=== PATIENT | female | born 1965 | race African-American/Black ===

== ENCOUNTER → 2023-06-22 10:16 | Outpatient (REF) | payer OTHER, SELFPAY | LOC: PAVMRI 10:16 | PROVIDERS: ATTENDING PHYSICIAN Student in an Organized Health Care Education/Training Program; FAMILY PHYSICIAN Family Medicine; REFERRING PHYSICIAN Physical Medicine & Rehabilitation | DX: M48.02 Spinal stenosis, cervical region (principal); M54.2 Cervicalgia; M25.512 Pain in left shoulder | CPT/HCPCS: 72141 ==

== ENCOUNTER 2023-10-10 11:19 | Inpatient (IN) | payer OTHER, SELFPAY ==
[2023-10-06] VITALS (11 sets, daily range): BP systolic 102–125; BP diastolic 64–88; PULSE 94–104; BMI 32.7
[2023-10-06 21:08] LABS: % Basophils 0.9 % (0-2); % Eosinophils 0.4 % (0-6); % Immature Granulocytes 0.2 % (0-0.5); % Lymphocytes 27.6 % (20.5-51.1); % Monocytes 11.1 % (1.7-9.3); % Neutrophils 59.8 % (42.2-75.2); Absolute Basophils 0.1 10^3/uL (0-0.2); Absolute Lymphocytes 2.3 10^3/uL (1.2-3.4); Absolute Monocytes 0.9 10^3/uL (0.1-0.6); Absolute Neutrophils 4.9 10^3/uL (1.4-6.5); Hematocrit 27.6 % (37.0-47.0); Hemoglobin 8.9 g/dL (12.0-16.0); Mean Corp Hgb Conc. 32.2 g/dL (33.0-37.0); Mean Corpuscular Hgb 23.1 pg (27.0-31.0); Mean Corpuscular Volume 71.7 fL (81.0-99.0); Mean Platelet Volume 9.9 fL (7.4-10.4); Nucleated Red Blood Cells % 0 %; Platelet Count 206 10^3/uL (130-400); Red Blood Cell Count 3.85 10^6/uL (4.20-5.40); Red Cell Dist. Width 16.8 % (11.5-14.5); White Blood Cell Count 8.2 10^3/uL (4.8-10.8)
--- NOTE | 2023-10-06 21:14 | ED.GENMED ---
History of Present Illness
General
Chief Complaint: Abnormal Lab Value
Source: patient and family
Exam Limitations: none
Time Seen by Provider: 10/06/23 19:30
Nursing documentation reviewed up to this point in time: agreed with
Travel History
Have you had any contact with someone who has COVID-19?: No
Do you have any symptoms of coronavirus? Fever > 100 degrees, chills, cough, shortness of breath, sore throat, loss of taste or smell, muscle aches, or headache?: No
History of Present Illness
History of Present Illness:
Patient discharged from [facility] 1 week ago, where she was evaluated for lower extremity swelling with generalized weakness, presents to ED from home secondary to worsening weakness, confusion, and decreased appetite. Patient who normally
utilizes walker at baseline, has not been able to bear weight without significant assistance since she has been home. Patient was evaluated by her primary care physician this afternoon and was referred to ED for further evaluation and treatment.
Patient reports feeling weak and tired, and wanting to sleep. Otherwise, denies headache. Denies chest pain. Denies coughing. Denies shortness of breath. Denies abdominal pain. Denies nausea, vomiting, or diarrhea. Patient does also report
continued swelling of her lower legs. Per family, when she was admitted 1 week ago, patient was found to be hypotensive and hypokalemic, secondary to use of diuretic. Patient was discharged home without identification of etiology behind her
symptoms. Patient was not given any diuretic at time of discharge. Patient has fallen multiple times due to weakness since she has been home. Denies any injuries from the fall.
Review of Systems
Review of Systems
Allergies reviewed?: Yes
All Other Systems: ROS reviewed and negative except as documented in HPI and ROS
Constitutional: Reports no symptoms; Denies fever
EENT: Reports no symptoms
Respiratory: Reports no symptoms
Cardiac: Reports no symptoms
ABD/GI: Reports no symptoms
: Reports no symptoms
Musculoskeletal: Reports edema
Skin: Reports no symptoms
Neurological: Reports weakness
Phy Exam
Physical Exam
Physical Exam:
Physical Exam
General: no apparent distress, not acutely ill. afebrile.
Head: nc/at. eomi
Neck: supple. normal range of motion.
Heart: s1/s2 regular rate and rhythm, no murmur. equal radial pulses.
Lungs: no acute respiratory distress. clear bilaterally
Abdomen: normal bowel sounds. not tender. rectal exam (YURY Gomez, at bedside): brown stool, grossly heme positive
Neuro: alert and oriented. no focal neurological deficits
Skin: no rash
Psychiatric: well kept. interactive and cooperative
Extremities: LE b/l edema. no calf tenderness.
Course
Orders/Labs/Results
Orders:
Orders
10/06/23 19:51
Orthostatic VS- Treatment ONCE
Urinalysis Reflex To Culture Urgent
Date Specimen was Collected: 10/07/23
Time Specimen was Collected: 20:10
10/06/23 20:55
CPK [Creatine Phosphokinase] Urgent
Complete Blood Count/With Diff Urgent
Comprehensive Metabolic Panel Urgent
Magnesium Urgent
NT-proBNP Urgent
TSH Urgent
Troponin I Urgent
10/06/23 22:04
Magnesium Sulfate 1 grams 0.9% Sodium Chloride 100 ml [Nss] 100 ml IV NOW
10/06/23 22:46
Furosemide [Lasix] 20 mg IV NOW STA
Pantoprazole [Protonix IV] 40 mg IV NOW STA
10/06/23 23:12
Heparin Pf [Heparin Lock Flush] 500 unit .ROUTE .STK-MED ONE
10/06/23 23:34
Admit/Transfer Patient As Directed
Co-Sign Provider:
Level of Care: Observation services
Assign to:: Medical/Surgical
Physician / Group: pricilla
Diagnosis: anemia. hypomagnesemia
Code Status As Directed
Resuscitation Status: Full Code
10/06/23 23:38
* Blood Bank Products Routine
Blood Bank Products: *Packed RBC Leuko(PRBC's)
Quantity: 1
Transfuse Today: Yes
Reason: Anemia
10/06/23 23:43
Heparin Pf [Heparin Lock Flush] 500 unit IV NOW ONE
10/06/23 23:45
Type+Screen Urgent
BBK Wristband Number:
B12 [Vitamin B12] Routine
Ferritin Routine
Folate Routine
Iron Routine
TIBC [Total Iron Binding] Routine
10/07/23 01:17
Ipratropium/Albuterol Sulfate [Duoneb] 3 ml INH R Q6 PRN
Levalbuterol Tartrate [Xopenex Hfa 45 Mcg Inhaler] 2 puff INH R Q6 PRN
Polyethylene Glycol Powder [Miralax] 17 grams PO DAILYPRN PRN
Tizanidine [Zanaflex] 2 mg PO DAILY PRN
10/07/23 01:17
Consult Notification Routine
Specialty to Notify: Gastroenterology
Date consulting provider notified: 10/07/23
Time consulting provider notified: 07:55
Notified:: Provider
Comment: TT NOTIFICATION
GASTROINTESTINAL CONSULT Routine
Consulting Provider: Joy Santiago
Was physician already notified: No
Reason for consult: UGIB, anemia
Activity As Directed
Activity Level: As Tolerated
Pneumatic Compression Sleeves As Directed
Type: Knee high
Vital Signs As Directed
Frequency: Per unit guidelines
Xopenex Reason for Use As Directed
Reason for ordering Xopenex instead of Albuterol: tachy
DX Deep Vein Thrombosis Video Routine
10/07/23 07:34
Complete Blood Count/With Diff IN AM
Comprehensive Metabolic Panel IN AM
10/07/23 08:00
Cetirizine HCl [Zyrtec] 10 mg PO DAILY
Duloxetine Delayed Release [Cymbalta Delayed Release] 20 mg PO DAILY
FLUTICASONE PROPIONATE 110 mcg [FLOVENT 110mcg] 1 puff INH R BID
FOLic ACID [Folvite] 1 mg PO DAILY
Ketotifen Fumarate [Zaditor] 1 drop BOTH EYES BID
Sodium/Potassium Phosphate Mix [Neutra-Phos Powder Packet] 250 mg PO MEALS
10/07/23 Dinner
Clear Liquid
At Your Request: Full Participation
Oral Supplement (If unsure of flavor order apple or vanilla): Ensure Clear Apple
Ensure Clear Ac
Supplement Frequency: TID
10/07/23 22:00
Meclizine [Antivert] 25 mg PO HS
Montelukast Sodium [Singulair] 10 mg PO HS
Tizanidine [Zanaflex] 2 mg PO HS
11/05/23 08:00
Cyanocobalamin 1,000 mcg IM MONTHLY
Abnormal Lab Results
10/06/23 10/06/23
20:55 23:45
RBC 3.85 L 10^6/uL
(4.20-5.40)
Hgb 8.9 L g/dL
(12.0-16.0)
Hct 27.6 L %
(37.0-47.0)
MCV 71.7 L fL
(81.0-99.0)
MCH 23.1 L pg
(27.0-31.0)
MCHC 32.2 L g/dL
(33.0-37.0)
RDW 16.8 H %
(11.5-14.5)
Absolute Monos (auto) 0.9 H 10^3/uL
(0.1-0.6)
Monocytes % 11.1 H %
(1.7-9.3)
Sodium 134 L mmol/L
(135-145)
BUN 22 H mg/dl
(7-17)
Glucose 103 H mg/dl
(70-99)
Calcium 7.5 L mg/dl
(8.4-10.2)
Magnesium 1.3 L mg/dl
(1.6-2.3)
TIBC 78 L ug/dl
(265-497)
% Saturation 69 H %
(20-50)
Ferritin 612.0 H ng/ml
(11.1-264.0)
AST 38 H U/L
(14-36)
ALT 42 H U/L
(0-35)
Total Protein 5.3 L g/dl
(6.3-8.2)
Albumin 1.9 L g/dl
(3.5-5.0)
Vitamin B12 > 1000 H pg/ml
(239-931)
Folate > 20.0 H ng/ml
(2.76-20)
Crossmatch IS Only See Detail
10/06/23 20:55
10/06/23 20:55
Vital Signs
Initial and Last Documented VS:
Initial Vital Signs
Temp Pulse Resp BP Pulse Ox
99.0 F 103 18 113/80 99
10/06/23 17:08 10/06/23 17:08 10/06/23 17:08 10/06/23 17:08 10/06/23 17:08
Last Documented Vital Signs
Temp Pulse Resp BP Pulse Ox
97.7 F 76 18 92/68 99
10/07/23 23:00 10/08/23 03:32 10/07/23 23:00 10/08/23 03:32 10/07/23 23:00
MDM/Problems Addressed
MDM/Problems Addressed:
Orthostatic vital signs noted. During ambulation, patient requiring multiple people assistance, while using a walker.
H/H noted - decreased from 10.0 on 09/22, along with heme positive stool.
Blood transfusion consent on the chart.
*Critical Care Note
Total Time (30-74mins, 75-104mins- exclusive of procedures): Not Applicable
ED Attending Note
-
Portions of this chart may have been created with voice recognition software.� Occasional wrong word or��sound alike� substitutions may have occurred due to the inherent limitations of voice recognition software.
Discharge Plan
Departure
Patient Disposition: Admit
Date of Disposition: 10/06/23
Time of Disposition: 22:47
Admit to: Telemetry
Presentation/result/management discussed w/ accepting MD/DO: Hospitalist
Discharge Problem:
GI bleed, Anemia, Hypomagnesemia, Leg swelling
Interventions
Interventions:
*Risk Screen - Suicide Last Done: 10/07/23 01:19
*General Assessment Last Done: 10/07/23 01:00
*Neglect/Abuse Screening Last Done: 10/06/23 22:47
ED- Fall Risk Assessment Last Done: 10/06/23 20:02
*ED COVID-19 Vaccine History Last Done: 10/06/23 17:08
*Nursing Disposition Last Done: 10/07/23 01:00
Discharge Date and Time
Discharge Date/Time: 10/07/23 01:42
[2023-10-06 21:32] LABS: ALT (SGPT) 42 U/L (0-35); AST (SGOT) 38 U/L (14-36); Albumin 1.9 g/dl (3.5-5.0); Alkaline Phosphatase 104 U/L (38-126); Blood Urea Nitrogen 22 mg/dl (7-17); Calcium 7.5 mg/dl (8.4-10.2); Carbon Dioxide 27 mmol/L (22-30); Creatine Phosphokinase 72 U/L (30-135); Estimated Creatinine Clearance 92 ml/min; Glucose 103 mg/dl (70-99); Magnesium 1.3 mg/dl (1.6-2.3); Total Bilirubin 0.9 mg/dl (0.2-1.3); Total Protein 5.3 g/dl (6.3-8.2); eGFR > 60.00
[2023-10-06 21:54] LABS: Chloride 105 mmol/L (98-107); Sodium 134 mmol/L (135-145)
[2023-10-06 22:20] LABS: TSH 1.18 uIU/ml (0.47-4.68)
[2023-10-06] MEDS: MAGNESIUM SULFATE 102 GRAMS IV (22:40)
[2023-10-06 22:51] LABS: NT-proBNP 194 pg/ml; Troponin I < 0.012 ng/ml
[2023-10-06] MEDS: PROTONIX IV 40 MG IV (23:33)
[2023-10-06] MEDS: LASIX 20 MG IV (23:39)
--- NOTE | 2023-10-06 23:42 | HPS.HSE ---
Family Physician
-
Family Physician: Noemi Fatima
Chief Complaint
-
weakness
History of Present Illness
58-year-old female with past medical history of asthma, chronic pain syndrome with intra-abdominal pain pump, lupus, scoliosis, fibromyalgia, anxiety/depression, obesity, thalassemia, iron deficiency anemia with port for iron transfusions,
presenting for worsening weakness and lower extremity edema.
Patient has been having progressive bilateral lower extremity edema since March. Over the past 2 weeks she was having generalized weakness. She was hospitalized at [facility] and found to be hypokalemic, hypomagnesemic attributed Lasix
given for lower extremity edema. Electrolytes were corrected. She was also found to be anemic but no workup or treatment was performed for this. Her hemoglobin was last 10 in June.
Patient was also confused and hallucinating while at [facility]. She was seen by neurology and MRI brain was supposed to be performed however could not be performed due to her intra-abdominal pain pump. Since discharge her hallucinations and
confusions have improved.
Patient has lost significant amount of muscle mass over the past several months. She gets full after eating just a few bites. She has been having trouble swallowing pills but denies any trouble swallowing solids or liquids. Denies sensation of
food getting stuck after eating. She sometimes gets acid reflux. Gets abdominal pain sometimes. Denies any blood in the stool or black stool or changes in bowel habits. No abdominal pain. She has been nauseous recently and dry heaving. No
diarrhea. She has been mostly bedbound over the past several weeks.
Patient has a history of lupus but has not seen steward/stewardess deck since 2004.
Since she has come home she has fallen multiple times due to weakness. She denies any injuries.
Pain pump gets refilled once a month by pain doctor.
Medical History
Past Medical History
Past Medical History: Reports Other (asthma, chronic pain syndrome with intra-abdominal pain pump, lupus, scoliosis, fibromyalgia, anxiety/depression, obesity, thalassemia, iron deficiency anemia with port for iron transfusions)
Past Surgical History: Reports None
Social History
Tobacco: Non-smoker
Alcohol: None
Drug: None
Family History
Family History: Not pertinent
Allergies / Home Medications
Allergies reflects when Allergies were last updated in [employer].
Home Medications with original date entered in [employer]
Allergy/Medication List:
Allergies
Allergy/AdvReac Type Severity Reaction Status Date / Time
acetaminophen Allergy Unknown Verified 03/07/20 11:57
hydromorphone [From Dilaudid] Allergy Unknown Verified 10/06/23 17:07
latex [Latex] Allergy Unknown Verified 03/07/20 11:57
propoxyphene Allergy Unknown Verified 03/07/20 11:57
red dye Allergy Unknown Verified 10/06/23 17:07
Home Medications
aspirin 81 mg tablet,delayed release 81 mg PO DAILY 10/06/23
celecoxib 200 mg capsule 200 mg PO BID 10/06/23
cetirizine 10 mg tablet 10 mg PO DAILY 10/06/23
cyanocobalamin (vitamin B-12) 1,000 mcg/mL injection solution 1,000 mcg IM MONTHLY 10/06/23
duloxetine 20 mg capsule,delayed release 20 mg PO DAILY 10/06/23
epinephrine 0.3 mg/0.3 mL injection syringe 0.3 mg IM ONCE PRN anaphylaxis 10/06/23
fluticasone furoate 100 mcg/actuation blister powder for inhalation (Arnuity Ellipta) 1 inh inhalation R DAILY 10/06/23
fluticasone propionate 110 mcg/actuation HFA aerosol inhaler 1 puff inhalation R BID 10/06/23
folic acid 1 mg tablet 1 mg PO DAILY 10/06/23
ipratropium 0.5 mg-albuterol 3 mg (2.5 mg base)/3 mL nebulization soln 3 ml inhalation R Q6 PRN wheezing 10/06/23
levalbuterol tartrate 45 mcg/actuation aerosol inhaler 2 puff inhalation R Q6 PRN wheezing 10/06/23
lorazepam 2 mg tablet 2 mg PO HS 10/06/23
meclizine 25 mg tablet 25 mg PO HS 10/06/23
montelukast 10 mg tablet 10 mg PO HS 10/06/23
naloxone 4 mg/actuation nasal spray 4 mg intranasal Q2M PRN opioid overdose 10/06/23
olopatadine 0.2 % eye drops 1 drp BOTH EYES DAILY 10/06/23
pantoprazole 40 mg tablet,delayed release 40 mg PO DAILY 10/06/23
sodium di- and monophosphate-potassium phos monobasic 250 mg tablet (Phospha Neutral) 1 tab PO MEALS 10/06/23
tizanidine 2 mg tablet 2 mg PO DAILY PRN severe pain 10/06/23
tizanidine 2 mg tablet 2 mg PO HS 10/06/23
Review of Systems
-
History Source: Patient
A 12 point ROS was completed and negative except as noted: Yes
Constitutional: Reports No Symptoms
EENT: Reports No Symptoms
Respiratory: Reports No Symptoms
Cardiac: Reports No Symptoms
Abdomen/GI: Reports See HPI
: Reports No Symptoms
Musculoskeletal: Reports No Symptoms
Skin: Reports No Symptoms
Neurological: Reports No Symptoms
Endocrine: Reports No Symptoms
Hematologic/Lymphatic: Reports No Symptoms
Psych: Reports No Symptoms
Physical Exam
Vital Signs
Vital Signs
Temp Pulse Resp BP Pulse Ox
99.0 F 94 20 111/65 99
10/06/23 17:08 10/06/23 23:39 10/06/23 23:20 10/06/23 23:39 10/06/23 23:20
Physical Exam
General: Well Developed, Well Nourished and No Apparent Distress
HEENT: NormoCephalic, Moist mucous membranes and Atraumatic
Respiratory: Clear
Cardiac: S1/S2 and Regular Rhythm; No Murmur or Rub
GI: Soft, Non Tender, Non Distended and Normal Bowel Sounds; No Organomegaly
Rectal: Deferred by Provider
Musculoskeletal: No Clubbing, No Cyanosis and No Edema
Skin: No Rash
Neuro: Nonfocal/grossly intact
Laboratory Results
-
10/06/23 20:55
10/06/23 20:55
Laboratory Results
Total Bilirubin 0.9 mg/dl (0.2-1.3) 10/06/23 20:55
AST 38 U/L (14-36) H 10/06/23 20:55
ALT 42 U/L (0-35) H 10/06/23 20:55
Alkaline Phosphatase 104 U/L (38-126) 10/06/23 20:55
Troponin I < 0.012 ng/ml 10/06/23 20:55
Data Reviewed
-
Lab Data: Labs Reviewed by me
Old Records: Reviewed
Impression/Plan
-
IMPRESSION:
PLAN:
# Weakness multifactorial secondary to anemia, hypomagnesemia
-See individually below
# Microcytic anemia possibly due to chronic upper GI blood loss/possible esophagitis/upper GI pathology
# History of thalassemia/iron deficiency anemia
-Hemoglobin 8.9, no recent hemoglobin available
-Fecal occult shows heme positive brown stool
-Blood consent obtained
-Type and screen
-Check iron studies, B12 and folate
-Continue B12 and folic acid supplement
-Hold aspirin, celecoxib
-1 unit of blood
-Protonix 40 IV twice daily
-GI consulted
# Hypomagnesemia possibly related to PPI use
-Replete magnesium
# Progressive bilateral lower extremity edema likely due to anasarca/hypoalbuminemia
# Severe protein malnutrition
-Albumin of 1.9
-Cardiac BNP of 200
-Nutrition consulted
-20 IV Lasix given
Asthma
-Continue inhalers
-Continue montelukast
History of lupus
-Not on treatment
-Outpatient follow-up with rheumatology
Chronic pain syndrome secondary to scoliosis/degenerative disc issues/fibromyalgia
-Patient has intra-abdominal pain pump
-Continue tizanidine
-Continue duloxetine
Anxiety/depression
-Continue lorazepam
Obesity
Full code
DVT prophylaxis�SCDs
Clear liquid diet
[2023-10-07] VITALS (11 sets, daily range): BP systolic 91–129; BP diastolic 57–78; BMI 31.8
[2023-10-07 00:21] LABS: Iron 54 ug/dl (37-170)
[2023-10-07 00:33] LABS: Percent Saturation 69 % (20-50); Total Iron Binding Capacity 78 ug/dl (265-497)
[2023-10-07 01:52] LABS: Folate > 20.0 ng/ml (2.76-20); Vitamin B12 > 1000 pg/ml (239-931)
--- NOTE | 2023-10-07 02:08 | W.PN.UPDATE ---
Update Note
Progress Note Update
RN asking CULLET TRUCKER to add patient's all PO meds at night time as she hasn't received her medications yet. Requesting Ativan, nortriptyline, Singulair, meclizine and Zanaflex at hs. Will add Ativan, Singulair, meclizine at present.
[2023-10-07] MEDS: SINGULAIR 10 MG PO ×2 (02:30→21:47)
[2023-10-07] MEDS: ATIVAN 2 MG PO ×2 (02:30→21:46)
[2023-10-07] MEDS: ANTIVERT 25 MG PO ×2 (02:30→21:46)
[2023-10-07 07:46] LABS: % Basophils 0.7 % (0-2); % Eosinophils 1.4 % (0-6); % Immature Granulocytes 0.3 % (0-0.5); % Monocytes 10.7 % (1.7-9.3); % Neutrophils 58.9 % (42.2-75.2); Absolute Basophils 0.1 10^3/uL (0-0.2); Absolute Eosinophils 0.1 10^3/uL (0-0.7); Absolute Monocytes 0.8 10^3/uL (0.1-0.6); Absolute Neutrophils 4.1 10^3/uL (1.4-6.5); Hematocrit 29.4 % (37.0-47.0); Hemoglobin 9.5 g/dL (12.0-16.0); Mean Corp Hgb Conc. 32.3 g/dL (33.0-37.0); Mean Corpuscular Hgb 24.1 pg (27.0-31.0); Mean Corpuscular Volume 74.4 fL (81.0-99.0); Mean Platelet Volume 10.5 fL (7.4-10.4); Nucleated Red Blood Cells % 0 %; Platelet Count 192 10^3/uL (130-400); Red Blood Cell Count 3.95 10^6/uL (4.20-5.40); Red Cell Dist. Width 18.1 % (11.5-14.5)
[2023-10-07 08:14] LABS: ALT (SGPT) 36 U/L (0-35); AST (SGOT) 43 U/L (14-36); Albumin 1.8 g/dl (3.5-5.0); Alkaline Phosphatase 96 U/L (38-126); Blood Urea Nitrogen 20 mg/dl (7-17); Calcium 7.1 mg/dl (8.4-10.2); Carbon Dioxide 28 mmol/L (22-30); Chloride 104 mmol/L (98-107); Estimated Creatinine Clearance 103 ml/min; Glucose 92 mg/dl (70-99); Potassium 3.7 mmol/L (3.5-5.1); Sodium 136 mmol/L (135-145); Total Bilirubin 1.6 mg/dl (0.2-1.3); Total Protein 5.1 g/dl (6.3-8.2); eGFR > 60.00
[2023-10-07] MEDS: FOLVITE 1 MG PO (09:27)
[2023-10-07] MEDS: CYMBALTA DELAYED RELEASE 20 MG PO (09:27)
[2023-10-07] MEDS: ZYRTEC 10 MG PO (09:28)
[2023-10-07] MEDS: FLUSH (NSS) 2 FLUSH IV (09:28)
[2023-10-07] MEDS: NEUTRA-PHOS POWDER PACKET 250 MG PO ×3 (09:28→17:23)
[2023-10-07] MEDS: NSS (PRESERVATIVE FREE) 10 ML IV ×2 (09:28→19:31)
[2023-10-07] MEDS: PROTONIX IV 40 MG IV ×2 (09:28→19:30)
[2023-10-07] MEDS: ZADITOR BOTH EYES ×2 (09:30→09:31)
--- NOTE | 2023-10-07 10:18 | CON.GI ---
Addendum entered and electronically signed by Danica Hackett DO 10/07/23 12:20:
I saw and examined the patient.
The VEHICLE INSURANCE AGENT or PA's note was reviewed and I agree with the note.
Comment: Briefly, Kera Porter is a 58 y.o. female w/ pmhx fibromyalgia, chronic pain syndrome,asthma, lupus, scoliosis, anxiety/depression, thalassemia, iron deficiency anemia with port for iron transfusions, recent intrathecal pain pump
placed admitted with complaints of worsening LE edema, weight loss, odynophagia (with potassium pills) and outpatient labs with worsening anemia. Recent hospitalization at [facility] for confusion, weakness and hallucinations felt to be 2/2
polypharmacy. Last EGD and Colonoscopy approximately 10 years ago per patient, no record of any prior EGD, but colonoscopy from 2010 was normal, recall 10 years. She states she has only had 1 colonoscopy before. It appears she was prescribed
celebrex daily at home, but states she never filled the Rx. She denies any melena, hematochezia or change in bowel habits, she has brown, heme positive stool on rectal exam. Labs significant for microcytic anemia and elevated liver enzymes.
#Odynophagia
#Weight loss
#Microcytic anemia
#Elevated LFTs
Plans:
-CT A/P w/ PO and IV contrast
-hepatitis panel, will consider additional inpatient autoimmune labs
-check hemolysis labs, CK
-EGD and Colonoscopy
Original Note:
Consultation
-
Date/Time Consultation Requested: 10/07/23 0113
Date/Time Consultation Performed: 10/07/23 0950
Requesting Provider: Dr. Wood
Performing Provider: Dr. Santiago/JOSÉ MIGUEL Waters
Reason for Consultation: anemia, OB pos stool
Medical History
Chief Complaint / HPI
Chief Complaint: weakness, confusion, decreased appetite
History of Present Illness:
58-year-old female with past medical history of fibromyalgia, chronic pain syndrome,asthma, lupus, scoliosis, anxiety/depression, iron deficiency anemia with port for iron transfusions, recent intrathecal pain pump placed who presents to the
emergency room after being at [facility] for confusion weakness and hallucinations felt to be possibly secondary to polypharmacy (reviewed discharge summary from [facility]) who presents to the emergency room with weight loss, lower
extremity edema worsening, odynophagia, progressive anemia with OB positive stool. We are asked to evaluate for anemia, OB positive stools and odynophagia. The patient tells me that she is here because she has not found out why she was confused at
[place] and why she is losing weight. The patient states that she has lost approximately 60 pounds. This has been correlated with her PCPs notes and she has lost over 69 pounds in the past year. She states that she had right lower extremity
edema and now she is starting with left lower extremity edema. She states that she has not been able to get up and move around much. She has had increasing fatigue. She states that she was given potassium pills at [facility] and then
started having subsequent odynophagia. She denies any dysphagia. She has had some early satiety lately after getting full quickly after eating smaller meals. She states she is eating approximately half of what she used to eat in the past month or
2. She states intermittently she is on omeprazole but secondary to insurance issues she is sometimes off of this. She states she is currently on it at the present time. She states she had her last endoscopy and colonoscopy 10 years ago. She did
have an endoscopy 08/17/[address] Mon that was negative and recommended repeat colonoscopy was recommended in 2020. She is only had 1 of each. I cannot find any record of endoscopy here. She has mild epigastric discomfort with palpation
only. She states she only has a bowel movement once a day but this is soft and formed. She denies any melena, hematochezia or rectal bleeding. She denies any history of hepatitis jaundice or liver disease. Her liver function tests are mildly
elevated at this time. Review of prior PCP records show no elevation of liver function test in the past. She does have a prior history of lupus but has not seen a motor equipment lieutenant in many years. She is on aspirin 81 mg as well as Celebrex 200 mg
p.o. twice daily at home. She states that she was placed on Celebrex just this past week. Her baseline hemoglobin is in the 10 range. Currently at the present time her hemoglobin is 9.5 up from 8.9 after 1 unit of packed red blood cells. WBC
7.0, MCV 71.7, MCH 23.1, platelets 192, sodium 136, potassium 3.7, chloride 104, CO2 28, BUN 20, creatinine 0.7, calcium 7.1, magnesium 1.3, iron 54, TIBC 78, percent saturation 69, ferritin 612.0, B12 greater than thousand, folate greater than 20,
albumin 1.8, total bilirubin 1.6 up from 0.9, direct bilirubin pending, AST 43, ALT 36, alk phos 96. Hepatitis panel pending. No imaging studies performed. Patient denies any fevers, chills, nausea, vomiting, melena, hematochezia, dysphagia,
tattoos, piercings, IV drug use, history of hepatitis, jaundice, liver disease. Patient denies any family history of gastrointestinal malignancy or IBD.
Past Medical History
Past Medical History: Asthma, Fibromyalgia and Other (Chronic pain syndrome, lupus, scoliosis, anxiety/depression, iron deficiency anemia)
Past Surgical History: Other (Intrathecal pain pump (not MRI compatible))
Social History
Tobacco: Non-Smoker
Alcohol: None
Drug: None
Family History
Family History: Other (No family history of gastrointestinal malignancy or IBD)
Allergies / Home Medications
Allergy/AdvReac Type Severity Reaction Status Date / Time
acetaminophen Allergy Unknown Verified 03/07/20 11:57
hydromorphone [From Dilaudid] Allergy Unknown Verified 10/06/23 17:07
latex [Latex] Allergy Unknown Verified 03/07/20 11:57
propoxyphene Allergy Unknown Verified 03/07/20 11:57
red dye Allergy Unknown Verified 10/06/23 17:07
�Medication �Instructions �Recorded
aspirin 81 mg tablet,delayed 81 mg PO DAILY 10/06/23
release
celecoxib 200 mg capsule 200 mg PO BID 10/06/23
cetirizine 10 mg tablet 10 mg PO DAILY 10/06/23
cyanocobalamin (vitamin B-12) 1,000 mcg IM MONTHLY 10/06/23
1,000 mcg/mL injection solution
duloxetine 20 mg capsule,delayed 20 mg PO DAILY 10/06/23
release
epinephrine 0.3 mg/0.3 mL 0.3 mg IM ONCE PRN anaphylaxis 10/06/23
injection syringe
fluticasone furoate 100 1 inh inhalation R DAILY 10/06/23
mcg/actuation blister powder for
inhalation (Arnuity Ellipta)
fluticasone propionate 110 1 puff inhalation R BID 10/06/23
mcg/actuation HFA aerosol inhaler
folic acid 1 mg tablet 1 mg PO DAILY 10/06/23
ipratropium 0.5 mg-albuterol 3 mg 3 ml inhalation R Q6 PRN wheezing 10/06/23
(2.5 mg base)/3 mL nebulization
soln
levalbuterol tartrate 45 2 puff inhalation R Q6 PRN wheezing 10/06/23
mcg/actuation aerosol inhaler
lorazepam 2 mg tablet 2 mg PO AMHS 10/06/23
meclizine 25 mg tablet 25 mg PO HS 10/06/23
montelukast 10 mg tablet 10 mg PO HS 10/06/23
naloxone 4 mg/actuation nasal spray 4 mg intranasal Q2M PRN opioid 10/06/23
overdose
olopatadine 0.2 % eye drops 1 drp BOTH EYES DAILY 10/06/23
pantoprazole 40 mg tablet,delayed 40 mg PO DAILY 10/06/23
release
sodium di- and 1 tab PO MEALS 10/06/23
monophosphate-potassium phos
monobasic 250 mg tablet (Phospha
Neutral)
tizanidine 2 mg tablet 2 mg PO DAILY PRN severe pain 10/06/23
tizanidine 2 mg tablet 2 mg PO HS 10/06/23
calcitriol 0.25 mcg capsule 0.25 mcg PO BID 10/07/23
gabapentin 300 mg capsule 900 mg PO HS 10/07/23
nortriptyline 75 mg capsule 75 mg PO HS 10/07/23
Review of Systems
-
All other systems: A 12 pt ROS was Negative except as stated above in HPI
Vital Signs
Temp Pulse Resp BP Pulse Ox
97.4 F 92 18 129/75 100
10/07/23 07:35 10/07/23 07:35 10/07/23 07:35 10/07/23 07:35 10/07/23 07:35
Physical Exam
Exam
General: No Apparent Distress
HEENT: Anicteric and Other (Right chest wall port)
Respiratory: Clear
Cardiac: Regular Rhythm
GI: Soft, Non Distended, Normal Bowel Sounds and Tender (Epigastric tenderness)
Musculoskeletal: Edema (+3 pitting edema right to knee, +2 pitting edema midway up to ku on left)
Skin: Warm and Dry
Neuro: AO x 3
Psych: Other (Flat affect)
Results
WBC 7.0 10^3/uL (4.8-10.8) 10/07/23 07:34
Hgb 9.5 g/dL (12.0-16.0) L 10/07/23 07:34
Hct 29.4 % (37.0-47.0) L 10/07/23 07:34
MCV 74.4 fL (81.0-99.0) L 10/07/23 07:34
Plt Count 192 10^3/uL (130-400) 10/07/23 07:34
Absolute Neuts (auto) 4.1 10^3/uL (1.4-6.5) 10/07/23 07:34
Sodium 136 mmol/L (135-145) 10/07/23 07:34
Potassium 3.7 mmol/L (3.5-5.1) 10/07/23 07:34
Chloride 104 mmol/L (98-107) 10/07/23 07:34
Carbon Dioxide 28 mmol/L (22-30) 10/07/23 07:34
BUN 20 mg/dl (7-17) H 10/07/23 07:34
Creatinine 0.7 mg/dL (0.6-1.0) 10/07/23 07:34
Calcium 7.1 mg/dl (8.4-10.2) L 10/07/23 07:34
Total Bilirubin 1.6 mg/dl (0.2-1.3) H 10/07/23 07:34
AST 43 U/L (14-36) H 10/07/23 07:34
ALT 36 U/L (0-35) H 10/07/23 07:34
Alkaline Phosphatase 96 U/L (38-126) 10/07/23 07:34
Diagnostic Image Results:
None this admission
Prior GI Procedures:
EGD: Patient states she had EGD 10 years ago. She states this was normal. Unable to find results
Colonoscopy: 08/17/2010 ([facility]) - Normal.
Recommendation: - Repeat colonoscopy in 10 years for screening purposes.
Assessment / Plan
-
58-year-old female with past medical history of fibromyalgia, chronic pain syndrome,asthma, lupus, scoliosis, anxiety/depression, iron deficiency anemia with port for iron transfusions, recent intrathecal pain pump placed who presents to the
emergency room after being at [facility] for confusion weakness and hallucinations felt to be possibly secondary to polypharmacy (reviewed discharge summary from [facility]) who presents to the emergency room with weight loss, lower
extremity edema worsening, odynophagia, progressive anemia with OB positive stool. We are asked to evaluate for anemia, OB positive stools and odynophagia. Her baseline hemoglobin is in the 10 range. Currently at the present time her hemoglobin
is 9.5 up from 8.9 after 1 unit of packed red blood cells. WBC 7.0, MCV 71.7, MCH 23.1, platelets 192, sodium 136, potassium 3.7, chloride 104, CO2 28, BUN 20, creatinine 0.7, calcium 7.1, magnesium 1.3, iron 54, TIBC 78, percent saturation 69,
ferritin 612.0, B12 > 1000, folate > 20, albumin 1.8, total bilirubin 1.6 up from 0.9, direct bilirubin pending, AST 43, ALT 36, alk phos 96. Hepatitis panel pending. No imaging studies performed. Patient denies any fevers, chills, nausea,
vomiting, melena, hematochezia, dysphagia, tattoos, piercings, IV drug use, history of hepatitis, jaundice, liver disease. Patient denies any family history of gastrointestinal malignancy or IBD.
Impression:
Microcytic anemia, lower than baseline (baseline 10, currently 8.9-> status post 1 unit packed red blood cells)
OB positive stool
Odynophagia -> after oral potassium pills
Epigastric pain
GERD
Weight loss-> 60 lbs over past year
Progressive lower extremity edema right greater than left
Elevated LFTs
Chronic pain syndrome with intrathecal pain pump (MRI conditional-> see implant card documentation 06/22/2023)
Plan:
-Continue pantoprazole 40 mg twice daily
-Clear liquid diet
-Patient agreeable to endoscopy and colonoscopy. Will likely need slow and prolonged prep given chronic narcotics from intrathecal pain pump. Patient aware and agreeable.
-MiraLAX twice daily today. MiraLAX 236 g tomorrow and Gatorade. Colyte prep on Tuesday for anticipation of EGD colonoscopy on Tuesday. Again patient aware and agreeable.
-Add Ensure clear 3 times daily
-CT abdomen and pelvis with oral and IV contrast given weight loss, pain, anemia, lower extremity edema
-Ultrasound of the abdomen with LFT elevation that is new
-CBC, LFTs in a.m.
-Hepatitis panel added and pending
-Further recommendations to follow.
Data Reviewed
-
Old Records: Reviewed
-
-
Thank you for consultation and allowing me to participate in the patient's care. Please call the concrete mixing truck driver GI physician during the after hours with any questions or concerns.
[2023-10-07] MEDS: OMNIPAQUE 50 ML PO (11:21)
[2023-10-07] MEDS: MIRALAX 17 GRAMS PO ×2 (11:21→19:30)
[2023-10-07 12:26] LABS: Hepatitis B Surface Antigen Negative (Negative)
[2023-10-07 12:43] LABS: Hepatitis B Surface Antibody Negative; Hepatitis C Antibody Negative (Negative)
--- NOTE | 2023-10-07 14:32 | W.PN.HOSP.TC ---
Today's Communication/Plan
-
CT scan of the abdomen pelvis
Monitor hemoglobin
Prep for EGD/colonoscopy
IV PPI
Physical therapy evaluation
Assessment / Plan
Assessment / Plan
Impression:
Presentation with generalized weakness.
Chronic microcytic anemia.
Odynophagia
Significant weight loss
Hypomagnesemia.
Chronic/worsening bilateral lower extremity edema.
Asthma without exacerbation
History of lupus currently not on any anti-inflammatory/immunosuppressive treatment.
Chronic pain syndrome secondary to scoliosis/degenerative disc disease/fibromyalgia
Indwelling/intra-abdominal pain pump in place
Anxiety/depression
Obesity with BMI of 31.
Plan:
Weakness/fatigue likely multifactorial possibly with contribution of worsening anemia
Patient reports improved lethargy since admission after transfusion
Chronic microcytic anemia with no evidence of acute blood loss.
Heme positive with brown stool.
Normal BUN.
History of thalassemia trend.
History of iron deficiency although recent iron levels consistent with normal saturations possibly anemia of chronic disease/inflammation.
Status post transfusion of 1 unit of packed red blood cells in ED with appropriate response in hemoglobin from 8.9-9.5
GI input appreciated
Plan is for EGD/colonoscopy, may need extensive prep given narcotics induced constipation.
Continue IV PPI twice daily.
Hold aspirin and NSAIDs.
Reported weight loss with hypoalbuminemia
Lower extremity edema.
CT scan of the abdomen pelvis pending to evaluate for occult malignancy
Hypomagnesemia being repleted. Follow magnesium level/BMP.
Chronic lower extremity edema.
Severe protein calorie malnutrition while BMI of 31
Albumin level of 1.9
No prior history or current clinical picture of CHF
CHF BNP 210
Evaluation as above
Status post single dose of Lasix on admission
Will hold further diuresis pending ongoing workup
Asthma
-Continue inhalers
-Continue montelukast
History of lupus
-Not on treatment
-Outpatient follow-up with rheumatology
Chronic pain syndrome secondary to scoliosis/degenerative disc issues/fibromyalgia
-Patient has intra-abdominal pain pump
-Continue tizanidine
-Continue duloxetine
Anxiety/depression
-Continue lorazepam
Obesity
Full code
DVT prophylaxis�SCDs
Clear liquid diet
Anticipated Discharge: 24 - 48 hours
Subjective/Interval History
-
Date of Service: October 07, 2023
Objective Data
-
Labs:
Laboratory Results
10/07/23
07:34
WBC 7.0
Hgb 9.5 L
Hct 29.4 L
Plt Count 192
Sodium 136
Potassium 3.7
Chloride 104
Carbon Dioxide 28
BUN 20 H
Creatinine 0.7
Glucose 92
Calcium 7.1 L
Total Bilirubin 1.6 H
AST 43 H
ALT 36 H
Alkaline Phosphatase 96
Vital Signs:
Vital Signs
Temp Pulse Resp BP Pulse Ox
97.4 F 92 18 129/75 100
10/07/23 07:35 10/07/23 07:35 10/07/23 07:35 10/07/23 07:35 10/07/23 07:35
I&O
10/06/23 10/07/23 10/08/23
06:59 06:59 06:59
Intake Total 730 / 730
Output Total 850 / 850
Balance -120 / -120
Physical Exam
-
General: Well Developed and No Apparent Distress
HEENT: Normocephalic, Atraumatic and Moist Mucous Membranes
Respiratory: Clear to Auscultation
Cardiac: Regular Rhythm and S1/S2; Negative Murmur, Rub or Gallop
GI: Soft, Nontender, Nondistended and Normal Bowel Sounds; Negative Organomegaly
Rectal: Deferred by Provider
Musculoskeletal: No Clubbing, No Cyanosis and Other (3+ bilateral lower extremity edema.)
Skin: Negative Rash
Neuro: Awake, Alert, Oriented and Nonfocal/Grossly Intact
--- NOTE | 2023-10-07 15:23 | CM ---
met with patient at bedside.she would not open her eyes when i spoke with her and she barely coorperated with answering quetions I aked.i did called daughter marcus whom she lives with in a condo.there are 30 steps to enter condo then bed and bath
is on one level.patient ambulates with a cane and rw.she needs A with bathing and dressing.her daughter marcus is her caregiver.her pcp i brentr osvaldo and she uses [facility] [address].patient has had a vn in past through [facility].she has no
episode of ip rehab.
patient with a hx of weakness, anemia,lupus,scoliosis,anemia is adm with weakness,anemia.she has had a recent adm to [facility] 1 week ago.patient for an egd/colonocopy,on ppi,ivfmonitor hgb.await pt/ot evals. Plan:home wit hcs vs
short term snf.
[2023-10-07 16:17] LABS: Hepatitis A IgM Antibody Negative (Negative); Hepatitis B Core Ab, IgM Negative (Negative)
[2023-10-07] MEDS: ZADITOR 1 DROP BOTH EYES (19:36)
[2023-10-07] MEDS: ROCALTROL 0.25 MCG PO (19:36)
[2023-10-07 20:29] LABS: Urine Albumin Negative (Neg - Trace); Urine Bilirubin 1+ (Negative); Urine Character Clear (Clear); Urine Color Yellow; Urine Glucose Negative (Negative); Urine Ketone Negative (Negative); Urine Leukocyte Trace (Negative); Urine Nitrite Negative (Negative); Urine Occult Blood Negative (Negative); Urine Urobilinogen 1+ (Neg - 1+)
[2023-10-07 20:40] LABS: Urine White Cell 0-2 /HPF (0-5)
[2023-10-07] MEDS: ZANAFLEX 2 MG PO (21:47)
[2023-10-07] MEDS: NEURONTIN 900 MG PO (21:47)
[2023-10-07] MEDS: PAMELOR 75 MG PO (21:47)
[2023-10-08 03:32] VITALS: BP 92/68
[2023-10-08 05:23] LABS: Hematocrit 28.8 % (37.0-47.0); Hemoglobin 9.6 g/dL (12.0-16.0); Mean Corp Hgb Conc. 33.3 g/dL (33.0-37.0); Mean Corpuscular Hgb 24.6 pg (27.0-31.0); Mean Corpuscular Volume 73.8 fL (81.0-99.0); Platelet Count 193 10^3/uL (130-400)
[2023-10-08 05:48] LABS: ALT (SGPT) 34 U/L (0-35); AST (SGOT) 34 U/L (14-36); Albumin 1.7 g/dl (3.5-5.0); Alkaline Phosphatase 95 U/L (38-126); Direct Bilirubin 0.7 mg/dl (0.0-0.4); Magnesium 1.5 mg/dl (1.6-2.3); Total Bilirubin 1.3 mg/dl (0.2-1.3); Total Protein 4.9 g/dl (6.3-8.2)
[2023-10-08 07:00] VITALS: BP 118/81
[2023-10-08] MEDS: ATIVAN 2 MG PO (09:49)
[2023-10-08] MEDS: ASPIR LOW (ENTERIC COATED) 81 MG PO (09:49)
[2023-10-08] MEDS: NEUTRA-PHOS POWDER PACKET 250 MG PO ×3 (09:50→17:04)
[2023-10-08] MEDS: CYMBALTA DELAYED RELEASE 20 MG PO (09:50)
[2023-10-08] MEDS: ROCALTROL 0.25 MCG PO ×2 (09:50→20:14)
[2023-10-08] MEDS: FOLVITE 1 MG PO (09:56)
[2023-10-08] MEDS: ZYRTEC 10 MG PO (09:56)
[2023-10-08] MEDS: ZADITOR BOTH EYES (09:56)
[2023-10-08] MEDS: NSS (PRESERVATIVE FREE) 10 ML IV ×2 (10:00→20:11)
[2023-10-08] MEDS: MIRALAX 17 GRAMS PO ×2 (10:00→20:11)
[2023-10-08] MEDS: FLUSH (NSS) 2 FLUSH IV (10:00)
[2023-10-08] MEDS: PROTONIX IV 40 MG IV ×2 (10:00→20:11)
[2023-10-08 12:30] VITALS: BP 112/84; PULSE 101; PULSE 104; O2SAT 98
[2023-10-08] MEDS: GAVILAX 238 GM PO (13:31)
--- NOTE | 2023-10-08 13:56 | W.PN.HOSP.TC ---
Today's Communication/Plan
-
decrease ativan/gabapentin/trazodone
for EGD/Cscope on mon
Assessment / Plan
Assessment / Plan
CT a/p
1. Findings suggesting uncomplicated colitis of the ascending colon, likely of infectious/inflammatory etiology. Consider direct visualization when the acute process resolves given the patient's weight loss.
2. Cholelithiasis.
3. Moderate stool burden throughout the sigmoid colon.

Impression:
Presentation with generalized weakness.
Chronic microcytic anemia.
Acute TME
Odynophagia
Significant weight loss
Hypomagnesemia.
Chronic/worsening bilateral lower extremity edema.
Asthma without exacerbation
History of lupus currently not on any anti-inflammatory/immunosuppressive treatment.
Chronic pain syndrome secondary to scoliosis/degenerative disc disease/fibromyalgia
Indwelling/intra-abdominal pain pump in place
Anxiety/depression
Obesity with BMI of 31.
Plan:
Weakness/fatigue likely multifactorial possibly with contribution of worsening anemia
Patient reports improved lethargy since admission after transfusion
Chronic microcytic anemia with no evidence of acute blood loss.
Heme positive with brown stool.
Normal BUN.
History of thalassemia trend.
History of iron deficiency although recent iron levels consistent with normal saturations possibly anemia of chronic disease/inflammation.
Status post transfusion of 1 unit of packed red blood cells in ED with appropriate response in hemoglobin from 8.9-9.5
GI input appreciated
Plan is for EGD/colonoscopy, may need extensive prep given narcotics induced constipation.
Continue IV PPI twice daily.
Hold aspirin and NSAIDs.
Reported weight loss with hypoalbuminemia
Lower extremity edema.
CT abdomen pelvis showing uncomplicated colitis of ascending colon although patient does not have any pain/diarrhea ongoing. Question of inflammatory changes versus malignancy..
Hypomagnesemia being repleted. Follow magnesium level/BMP.
Chronic lower extremity edema.
Severe protein calorie malnutrition while BMI of 31
Albumin level of 1.9
No prior history or current clinical picture of CHF
CHF BNP 210
Evaluation as above
Status post single dose of Lasix on admission
Will hold further diuresis pending ongoing workup
Acute toxic leukoencephalopathy -concern due to ongoing polypharmacy with duloxetine and/gabapentin/lorazepam/nortriptyline and morphine pump
Decreasing dose of gabapentin 600 mg at bedtime and cutting lorazepam down to 1 mg twice daily.
Require further de-escalation of other nonnarcotic sedative medication
Patient noted to be unresponsive or respiratory rate less than 8 will need to be provided Narcan
Asthma
-Continue inhalers
-Continue montelukast
History of lupus
-Not on treatment
-Outpatient follow-up with rheumatology
Chronic pain syndrome secondary to scoliosis/degenerative disc issues/fibromyalgia
-Patient has intra-abdominal pain pump
Anxiety/depression
-Continue lorazepam
Obesity
Full code
DVT prophylaxis�SCDs
Patient high risk for complication due to ongoing encephalopathy from patient chronic polypharmacy. Patient at high risk of aspiration/pulmonary arrest.
Total time spent : 53 mins
Anticipated Discharge: > 48 hours
Subjective/Interval History
-
Date of Service: October 08, 2023
Patient somewhat sedated although waking up on verbal stimuli
Not able to provide any detailed review of system
no reported problems per RN
Objective Data
-
Labs:
Laboratory Results
10/08/23
04:58
WBC 6.0
Hgb 9.6 L
Hct 28.8 L
Plt Count 193
Total Bilirubin 1.3
AST 34
ALT 34
Alkaline Phosphatase 95
Vital Signs:
Vital Signs
Temp Pulse Resp BP Pulse Ox
97.6 F 68 16 118/81 97
10/08/23 07:00 10/08/23 08:14 10/08/23 08:14 10/08/23 07:00 10/08/23 08:14
I&O
10/07/23 10/08/23 10/09/23
06:59 06:59 06:59
Intake Total 730 / 730 1200 / 1200
Output Total 850 / 850 700 / 700
Balance -120 / -120 500 / 500
Review of Systems
-
Unable to obtain full review of systems at this time due to: Acuity
Physical Exam
-
General: Negative Appears in Distress or Pain
HEENT: Negative Oxygen
Respiratory: Clear to Auscultation
Cardiac: Regular Rhythm and S1/S2; Negative Murmur, Rub or Gallop
GI: Soft, Nontender and Nondistended; Negative Organomegaly
Musculoskeletal: No Clubbing, No Cyanosis and Other (3+ bilateral lower extremity edema.)
Skin: Negative Rash
Neuro: Sedated and Nonfocal/Grossly Intact
[2023-10-08 15:37] VITALS: BP 116/78
[2023-10-08] MEDS: ZADITOR 1 DROP BOTH EYES (20:13)
[2023-10-08] MEDS: PAMELOR 75 MG PO (22:29)
[2023-10-08] MEDS: SINGULAIR 10 MG PO (22:29)
[2023-10-08] MEDS: ATIVAN 1 MG PO (22:29)
[2023-10-08] MEDS: NEURONTIN 600 MG PO (22:29)
[2023-10-08] MEDS: ZANAFLEX 2 MG PO (22:29)
[2023-10-08] MEDS: ANTIVERT 25 MG PO (22:29)
[2023-10-08 23:22] VITALS: BP 120/83
[2023-10-09 05:22] LABS: Hematocrit 31.8 % (37.0-47.0); Hemoglobin 10.3 g/dL (12.0-16.0); Mean Corp Hgb Conc. 32.4 g/dL (33.0-37.0); Mean Corpuscular Hgb 24.2 pg (27.0-31.0); Mean Corpuscular Volume 74.6 fL (81.0-99.0); Mean Platelet Volume 10.3 fL (7.4-10.4); Platelet Count 190 10^3/uL (130-400); Red Blood Cell Count 4.26 10^6/uL (4.20-5.40); Red Cell Dist. Width 18.9 % (11.5-14.5); White Blood Cell Count 12.4 10^3/uL (4.8-10.8)
[2023-10-09 05:50] LABS: Blood Urea Nitrogen 15 mg/dl (7-17); Calcium 7.5 mg/dl (8.4-10.2); Carbon Dioxide 31 mmol/L (22-30); Chloride 102 mmol/L (98-107); Estimated Creatinine Clearance 121 ml/min; Glucose 120 mg/dl (70-99); Potassium 3.5 mmol/L (3.5-5.1); Sodium 137 mmol/L (135-145); eGFR > 60.00
[2023-10-09 07:30] VITALS: BP 101/56
--- NOTE | 2023-10-09 09:11 | W.PN.GI.CBS2 ---
Today's Communication / Plan
-
mental status change - needs workup
added stool studies
Assessment / Plan
-
58-year-old female with past medical history of fibromyalgia, chronic pain syndrome,asthma, lupus, scoliosis, anxiety/depression, iron deficiency anemia with port for iron transfusions, recent intrathecal pain pump placed who presents to the
emergency room after being at [facility] for confusion weakness and hallucinations felt to be possibly secondary to polypharmacy (reviewed discharge summary from [facility]) who presents to the emergency room with weight loss, lower
extremity edema worsening, odynophagia, progressive anemia with OB positive stool. We are asked to evaluate for anemia, OB positive stools and odynophagia. Her baseline hemoglobin is in the 10 range. Currently at the present time her hemoglobin
is 9.5 up from 8.9 after 1 unit of packed red blood cells. WBC 7.0, MCV 71.7, MCH 23.1, platelets 192, sodium 136, potassium 3.7, chloride 104, CO2 28, BUN 20, creatinine 0.7, calcium 7.1, magnesium 1.3, iron 54, TIBC 78, percent saturation 69,
ferritin 612.0, B12 > 1000, folate > 20, albumin 1.8, total bilirubin 1.6 up from 0.9, direct bilirubin pending, AST 43, ALT 36, alk phos 96. Hepatitis panel pending. No imaging studies performed. Patient denies any fevers, chills, nausea,
vomiting, melena, hematochezia, dysphagia, tattoos, piercings, IV drug use, history of hepatitis, jaundice, liver disease. Patient denies any family history of gastrointestinal malignancy or IBD.
CT 10/07/23: with IV and PO: -Anatomy consistent with gastric bypass, liver and gallbladder stones, common bile duct 8 mm with no filling defect on CT scan, no lymphadenopathy, questionable postoperative seroma in the left flaquito-abdomen adjacent to
the anastomotic sutures measuring 2 x 5 cm, moderate circumferential wall thickening throughout the ascending colon, moderate stool burden throughout the sigmoid.
Ultrasound, 10/07/2023 mild extrahepatic ductal dilatation with common bile duct measuring 8 mm, gallbladder wall 3 mm, no pericholecystic fluid
Impression:
Microcytic anemia, lower than baseline (baseline 10, currently 8.9-> status post 1 unit packed red blood cells)
OB positive stool
Odynophagia -> after oral potassium pills
Epigastric pain
GERD
Weight loss-> 60 lbs over past year
Progressive lower extremity edema right greater than left
Elevated LFTs
Chronic pain syndrome with intrathecal pain pump (MRI conditional-> see implant card documentation 06/22/2023)
Plan:
-Continue pantoprazole 40 mg twice daily
-Clear liquid diet
-Patient agreeable to endoscopy and colonoscopy. Will likely need slow and prolonged prep given chronic narcotics from intrathecal pain pump. Patient aware and agreeable.
-MiraLAX twice daily today. MiraLAX 236 g tomorrow and Gatorade. Colyte prep on Tuesday for anticipation of EGD colonoscopy on Tuesday. Again patient aware and agreeable.
-Add Ensure clear 3 times daily
-CT abdomen and pelvis with oral and IV contrast given weight loss, pain, anemia, lower extremity edema
-Ultrasound of the abdomen with LFT elevation that is new
-CBC, LFTs in a.m.
-Hepatitis panel added and pending
-Further recommendations to follow.
10/09/23: patient is very lethargic and difficult to wake up - had to sternal rub her
apparently similar yesterday and they decreased her medications
Hasn't received any meds today
would say one word and fall back to sleep
increased leukocytosis today, afebrile
stools ordered, discussed with hospitalist - consider culturing her in the setting of change in mental status
NPO until her mentation improves
RN aware
need to get more history
reviewed CT and U/S - LFTs improved, mildly dilated CBD at 8mm - consider MRCP
holding on procedures until she is more awake
Total Time Spent with Patient (in minutes): 35
Subjective
Subjective
Date of Service: October 09, 2023
patient very somnolent - sternal rub woke her up. She answered one word but falls back to sleep
No meds this morning
Objective
Data Reviewed
Laboratory Data:
Laboratory Results
10/09/23 05:05
10/09/23 05:05
Laboratory Results
Magnesium 1.5 mg/dl (1.6-2.3) L 10/08/23 04:58
Total Bilirubin 1.3 mg/dl (0.2-1.3) 10/08/23 04:58
AST 34 U/L (14-36) 10/08/23 04:58
ALT 34 U/L (0-35) 10/08/23 04:58
Alkaline Phosphatase 95 U/L (38-126) 10/08/23 04:58
Vital Signs and I&O:
Vital Signs
Temp Pulse Resp BP Pulse Ox
97.5 F 76 16 101/56 94
10/09/23 07:30 10/09/23 08:24 10/09/23 08:24 10/09/23 07:30 10/09/23 08:24
I&O
10/08/23 10/09/23 10/10/23
06:59 06:59 06:59
Intake Total 1200 / 1200 960 / 960
Output Total 700 / 700
Balance 500 / 500 960 / 960
Physical Exam
Physical Exam
HEENT: Anicteric
Neuro: Other (very somnolent - small pupils - difficult to wake - speaks one word)
[2023-10-09] MEDS: ATIVAN PO (09:23)
[2023-10-09] MEDS: ZADITOR 1 DROP BOTH EYES ×2 (09:24→20:36)
[2023-10-09] MEDS: NSS (PRESERVATIVE FREE) 10 ML IV ×2 (09:28→20:26)
[2023-10-09] MEDS: PROTONIX IV 40 MG IV ×2 (09:28→20:26)
--- NOTE | 2023-10-09 09:29 | W.PN.HOSP.TC ---
Addendum entered and electronically signed by Rigo Castillo MD 10/11/23 09:00:
Correction:
Per daughter patient ABLE to walk around with wallker
VBG not ordered after reeval.
Original Note:
Today's Communication/Plan
-
see note
Assessment / Plan
Assessment / Plan
CT a/p
1. Findings suggesting uncomplicated colitis of the ascending colon, likely of infectious/inflammatory etiology. Consider direct visualization when the acute process resolves given the patient's weight loss.
2. Cholelithiasis.
3. Moderate stool burden throughout the sigmoid colon.

Impression:
Presentation with generalized weakness.
Chronic microcytic anemia.
Acute TME
Odynophagia
Significant weight loss
Hypomagnesemia.
Chronic/worsening bilateral lower extremity edema.
Asthma without exacerbation
History of lupus currently not on any anti-inflammatory/immunosuppressive treatment.
Chronic pain syndrome secondary to scoliosis/degenerative disc disease/fibromyalgia
Indwelling/intra-abdominal pain pump in place
Anxiety/depression
Obesity with BMI of 31.
Plan:
Weakness/fatigue likely multifactorial possibly with contribution of worsening anemia
Patient reports improved lethargy since admission after transfusion
Chronic microcytic anemia with no evidence of acute blood loss.
Heme positive with brown stool.
Normal BUN.
History of thalassemia trend.
History of iron deficiency although recent iron levels consistent with normal saturations possibly anemia of chronic disease/inflammation.
Status post transfusion of 1 unit of packed red blood cells in ED with appropriate response in hemoglobin from 8.9-9.5
GI input appreciated
Plan is for EGD/colonoscopy, may need extensive prep given narcotics induced constipation.
Continue IV PPI twice daily.
Hold aspirin and NSAIDs.
Reported weight loss with hypoalbuminemia
Lower extremity edema.
CT abdomen pelvis showing uncomplicated colitis of ascending colon although patient does not have any pain/diarrhea ongoing. Question of inflammatory changes versus malignancy..
Hypomagnesemia being repleted. Follow magnesium level/BMP.
Chronic lower extremity edema.
Severe protein calorie malnutrition while BMI of 31
Albumin level of 1.9
No prior history or current clinical picture of CHF
CHF BNP 210
Evaluation as above
Status post single dose of Lasix on admission
Will hold further diuresis pending ongoing workup
Acute toxic leukoencephalopathy -concern due to ongoing polypharmacy with duloxetine and/gabapentin/lorazepam/nortriptyline and morphine pump
This has persisted today patient continued to remain with decreased wakefulness. Waking up on physical stimuli and able to communicate coherently although falls asleep fairly quick
Holding all known normal morphine medication of gabapentin/Ativan/Zanaflex. Decreasing amitriptyline to 25 mg at bedtime
Morphine pump in place and right flank palpated on exam. Managed by Dr. Gutierrez? at [facility]
Discussed with daughter patient has been unable to get around with walker. Reportedly had 2 falls last week with patient is not remembering the second fall. CT head without contrast urgent ordered to rule out any slow subdural bleed.
ABG ordered to rule out CO2 narcosis although patient declined. Will check VBG instead.
UA clear. Check COVID. No other signs suggestive of ongoing sepsis.
Low clinical concern for non seizure activity as patient more or less somnolent and responding to stimuli.
Hypotension
Blood pressure in afternoon 85/55. NS fluid bolus and midodrine ordered
No signs of sepsis. No signs of blood loss.
Zanaflex parameter adjusted
Asthma
-Continue inhalers
-Continue montelukast
History of lupus
-Not on treatment
-Outpatient follow-up with rheumatology
Chronic pain syndrome secondary to scoliosis/degenerative disc issues/fibromyalgia
-Patient has intra-abdominal pain pump
Anxiety/depression
-Continue lorazepam
Obesity
Full code
DVT prophylaxis�SCDs
Patient high risk for complication due to ongoing encephalopathy from patient chronic polypharmacy. Patient at high risk of aspiration/pulmonary arrest.
Care plan discussed with daughter.
Discussed with GI/RN.
I discussed with patient daughter that morphine pump setting may need to be adjusted as patient likely getting too much morphine in my opinion. Unfortunately we do not have any pain specialist in hospital to provide any help with the pain pump
management. If any concern of respiratory drive depression patient will need to be given Narcan.
Total time spent : 60 mins
Anticipated Discharge: > 48 hours
Subjective/Interval History
-
Date of Service: October 09, 2023
Patient remains sedated
Waking up on physical stimuli
Not voicing any complaints when waking up
Objective Data
-
Labs:
Laboratory Results
10/09/23
05:05
WBC 12.4 H
Hgb 10.3 L
Hct 31.8 L
Plt Count 190
Sodium 137
Potassium 3.5
Chloride 102
Carbon Dioxide 31 H
BUN 15
Creatinine 0.6
Glucose 120 H
Calcium 7.5 L
Vital Signs:
Vital Signs
Temp Pulse Resp BP Pulse Ox
97.5 F 76 16 101/56 94
10/09/23 07:30 10/09/23 08:24 10/09/23 08:24 10/09/23 07:30 10/09/23 08:24
I&O
10/08/23 10/09/23 10/10/23
06:59 06:59 06:59
Intake Total 1200 / 1200 960 / 960
Output Total 700 / 700
Balance 500 / 500 960 / 960
Review of Systems
-
Unable to obtain full review of systems at this time due to: Acuity
Physical Exam
-
General: Negative Appears in Distress or Pain
HEENT: Negative Oxygen
Respiratory: Clear to Auscultation
Musculoskeletal: No Clubbing, No Cyanosis, Edema, Right Lower Extrem and Edema, Left Lower Extrem
Skin: Negative Rash
Neuro: Awake, Sedated (wakes up on vebal command ) and Nonfocal/Grossly Intact
[2023-10-09] MEDS: NEUTRA-PHOS POWDER PACKET 250 MG PO ×2 (09:44→16:40)
[2023-10-09] MEDS: ASPIR LOW (ENTERIC COATED) 81 MG PO (09:44)
[2023-10-09] MEDS: FOLVITE 1 MG PO (09:44)
[2023-10-09] MEDS: ROCALTROL 0.25 MCG PO ×2 (09:44→20:26)
[2023-10-09] MEDS: ZYRTEC 10 MG PO (09:44)
[2023-10-09] MEDS: MIRALAX 17 GRAMS PO ×2 (09:45→20:25)
[2023-10-09] MEDS: CYMBALTA DELAYED RELEASE PO (09:46)
--- NOTE | 2023-10-09 10:07 | PTCARENOTE ---
Patient was very sedated this am, only opened her eyes briefly to voice and then went right back to sleep. Vital signs stable, Dr. Castillo came to bedside to assess. Patient was not given anything sedating this am by RN. Dr. Castillo ordered head CT and
ABGs, will continue to monitor.
--- NOTE | 2023-10-09 10:22 | RESPNOTE ---
patient refusing ordered ABG at this time. notified ordering physician
[2023-10-09 10:27] LABS: COVID-19 Antigen Negative (Negative)
[2023-10-09 11:42] VITALS: BP 85/55
[2023-10-09] MEDS: NSS 500 IV (11:57)
[2023-10-09] MEDS: NEUTRA-PHOS POWDER PACKET PO (11:57)
[2023-10-09 12:18] VITALS: BP 110/62
[2023-10-09] MEDS: ProAmatine PO ×2 (13:32→17:16)
[2023-10-09 15:25] VITALS: BP 121/76
[2023-10-09] MEDS: PAMELOR 25 MG PO (22:02)
[2023-10-09] MEDS: ANTIVERT 25 MG PO (22:02)
[2023-10-09] MEDS: SINGULAIR 10 MG PO (22:02)
[2023-10-09 23:21] VITALS: BP 91/56
[2023-10-10 05:52] LABS: Hematocrit 29.3 % (37.0-47.0); Hemoglobin 9.3 g/dL (12.0-16.0); Mean Corp Hgb Conc. 31.7 g/dL (33.0-37.0); Mean Corpuscular Volume 75.7 fL (81.0-99.0); Mean Platelet Volume 9.8 fL (7.4-10.4); Platelet Count 141 10^3/uL (130-400); Red Blood Cell Count 3.87 10^6/uL (4.20-5.40); Red Cell Dist. Width 19.1 % (11.5-14.5); White Blood Cell Count 10.4 10^3/uL (4.8-10.8)
[2023-10-10 06:15] LABS: Blood Urea Nitrogen 14 mg/dl (7-17); Calcium 7.5 mg/dl (8.4-10.2); Carbon Dioxide 33 mmol/L (22-30); Chloride 105 mmol/L (98-107); Estimated Creatinine Clearance 103 ml/min; Glucose 88 mg/dl (70-99); Potassium 3.6 mmol/L (3.5-5.1); Sodium 139 mmol/L (135-145); eGFR > 60.00
[2023-10-10 07:20] VITALS: BP 93/53
[2023-10-10] MEDS: ZADITOR 1 DROP BOTH EYES ×2 (08:31→20:31)
[2023-10-10] MEDS: NSS (PRESERVATIVE FREE) 10 ML IV ×2 (08:31→20:30)
[2023-10-10] MEDS: PROTONIX IV 40 MG IV ×2 (08:31→20:30)
[2023-10-10] MEDS: FOLVITE 1 MG PO (08:32)
[2023-10-10] MEDS: ASPIR LOW (ENTERIC COATED) 81 MG PO (08:32)
[2023-10-10] MEDS: CYMBALTA DELAYED RELEASE 20 MG PO (08:32)
[2023-10-10] MEDS: ROCALTROL 0.25 MCG PO ×2 (08:33→20:30)
[2023-10-10] MEDS: ProAmatine 10 MG PO (08:33)
[2023-10-10] MEDS: ZYRTEC 10 MG PO (08:33)
[2023-10-10] MEDS: MIRALAX 17 GRAMS PO ×2 (08:36→20:30)
[2023-10-10] MEDS: NEUTRA-PHOS POWDER PACKET 250 MG PO ×3 (08:37→17:31)
--- NOTE | 2023-10-10 08:42 | W.PN.GI.CBS2 ---
Addendum entered and electronically signed by Joy Santiago DO 10/10/23 13:59:
Patient seen and examined independently of SENIOR [employer]OLS TECHNICIAN. I agree with her note with my additions below
Long discussion with patient today as she is much more alert and oriented. She is very frustrated that she is not undergoing her procedures today and not eating.
Overall she does not answer some of my questions directly and just states that she feels like she is losing weight because she is working too much and starting of a new job.
She denies any dysphagia to liquids or solids, denies heartburn, nausea, vomiting, abdominal pain, diarrhea, constipation.
She says she is lost about 40 pounds since March.
She has a history of gastric bypass for weight loss decades ago in 2001. She denies any diarrhea prior to admission.
I discussed with her today how she was significantly lethargic yesterday. I told her it was likely due to her medications which she disagreed with. She tells me she is just tired from working and she gets like this. I respectfully disagreed. I
asked her what her report was for and she says [facility] gives her B12 and iron infusions and she follows with Dr. Montgomery.
She was just at [facility] for weakness and confusion with hallucinations thought to be also secondary to polypharmacy. Her stools are brown but occult positive for blood. She has never had an endoscopy. Her last colonoscopy was well over
10 years ago.
Hemoglobin in July 2022 was 10.4 with an MCV of 74 and platelets of 180. Ferritin was 288, B12 899
The last note I can find in the outpatient setting from Dr. Montgomery was from July 2022 where he was seeing her for iron deficiency anemia thought to be secondary to her gastric bypass surgery and hemoglobinopathy. Patient was getting B12 injections
at home.
I asked her about her pain pump which she said was for her back.
I reviewed her plan which shows a questionable seroma in the left flaquito-abdomen along the anastomosis site as well as moderate circumferential wall thickening ascending colon.
Currently no signs of infection
She is much more awake today and on less medication.
We will finish prepping her for endoscopy and colonoscopy
The stools had to be canceled since she was given a bowel prep. If after the colonoscopy we do not have any findings and she continues to have loose stools we will resubmit the stool studies.
N.p.o. after midnight for EGD and colon Tomorrow
Original Note:
Today's Communication / Plan
-
EGD/COLO 10/11/23
Assessment / Plan
-
58-year-old female with past medical history of fibromyalgia, chronic pain syndrome,asthma, lupus, scoliosis, anxiety/depression, thalassemia, iron deficiency anemia with port for iron transfusions, recent intrathecal pain pump placed who presents
to the emergency room after being at [facility] for confusion weakness and hallucinations felt to be possibly secondary to polypharmacy (reviewed discharge summary from [facility]) who presents to the emergency room with weight loss,
lower extremity edema worsening, odynophagia, progressive anemia with OB positive stool. We are asked to evaluate for anemia, OB positive stools and odynophagia. Her baseline hemoglobin is in the 10 range. Currently at the present time her
hemoglobin is 9.5 up from 8.9 after 1 unit of packed red blood cells. WBC 7.0, MCV 71.7, MCH 23.1, platelets 192, sodium 136, potassium 3.7, chloride 104, CO2 28, BUN 20, creatinine 0.7, calcium 7.1, magnesium 1.3, iron 54, TIBC 78, percent
saturation 69, ferritin 612.0, B12 > 1000, folate > 20, albumin 1.8, total bilirubin 1.6 up from 0.9, direct bilirubin pending, AST 43, ALT 36, alk phos 96. Hepatitis panel negative. Patient denies any fevers, chills, nausea, vomiting, melena,
hematochezia, dysphagia, tattoos, piercings, IV drug use, history of hepatitis, jaundice, liver disease. Patient denies any family history of gastrointestinal malignancy or IBD.
CT 10/07/23: with IV and PO: -Anatomy consistent with gastric bypass, liver and gallbladder stones, common bile duct 8 mm with no filling defect on CT scan, no lymphadenopathy, questionable postoperative seroma in the left flaquito-abdomen adjacent to
the anastomotic sutures measuring 2 x 5 cm, moderate circumferential wall thickening throughout the ascending colon, moderate stool burden throughout the sigmoid.
Ultrasound, 10/07/2023 mild extrahepatic ductal dilatation with common bile duct measuring 8 mm, gallbladder wall 3 mm, no pericholecystic fluid
Impression:
Microcytic anemia, lower than baseline (baseline 10, currently 8.9-> status post 1 unit packed red blood cells)->9.3
OB positive stool
Odynophagia -> after oral potassium pills
Epigastric pain
GERD
Weight loss-> 60 lbs over past year
Progressive lower extremity edema right greater than left
Elevated LFTs-> improved ->Ultrasound, 10/07/2023 mild extrahepatic ductal dilatation with common bile duct measuring 8 mm, gallbladder wall 3 mm, no pericholecystic fluid
Chronic pain syndrome with intrathecal pain pump (MRI conditional-> see implant card documentation 06/22/2023)
10/09/23: patient is very lethargic and difficult to wake up - had to sternal rub her
apparently similar yesterday and they decreased her medications
Hasn't received any meds today
would say one word and fall back to sleep
increased leukocytosis today, afebrile
stools ordered, discussed with hospitalist - consider culturing her in the setting of change in mental status
NPO until her mentation improves
RN aware
need to get more history
reviewed CT and U/S - LFTs improved, mildly dilated CBD at 8mm - consider MRCP
holding on procedures until she is more awake
10/10/23:
-Patient awake today, sedating meds adjusted. WBC WNL.
Plan:
-Continue pantoprazole 40 mg twice daily
-Clear liquid diet, Prep for EGD/COLO on 10/11/23
-Continue Ensure clear 3 times daily
-CBC, BMP in am
-reviewed CT and U/S - LFTs improved, mildly dilated CBD at 8mm - consider MRCP, intrathecal pain pump MRI conditional-> see 06/22/23 note for instructions.
Subjective
Subjective
Date of Service: October 10, 2023
Patient awake this am. EGD/COLO prep postponed yesterday due to patient mentation. Patient is AAO this am, stating that 'I want to have this testing done so I can eat'. Patient having BMs, slow prepping was being performed over Tue/Tue. WBC now WNL.
Patient afebrile. Medications adjusted by IM that could be sedating. Patient refused ABG yesterday.
Objective
Data Reviewed
Laboratory Data:
Laboratory Results
10/10/23 05:24
10/10/23 05:24
Laboratory Results
Magnesium 1.5 mg/dl (1.6-2.3) L 10/08/23 04:58
Total Bilirubin 1.3 mg/dl (0.2-1.3) 10/08/23 04:58
AST 34 U/L (14-36) 10/08/23 04:58
ALT 34 U/L (0-35) 10/08/23 04:58
Alkaline Phosphatase 95 U/L (38-126) 10/08/23 04:58
Vital Signs and I&O:
Vital Signs
Temp Pulse Resp BP Pulse Ox
98.3 F 108 18 93/53 99
10/10/23 07:20 10/10/23 07:25 10/10/23 07:25 10/10/23 07:20 10/10/23 07:25
I&O
10/09/23 10/10/23 10/11/23
06:59 06:59 06:59
Intake Total 960 / 960 960 / 960
Balance 960 / 960 960 / 960
Physical Exam
Physical Exam
HEENT: Anicteric
Cardiology: Normal Sinus Rhythm
Pulmonary: Clear
GI: Soft, Non Distended, Non Tender and Normal Bowel Sounds
Extremities: Edema (B/L LE, SCDs in place)
Neuro: Non Focal
--- NOTE | 2023-10-10 09:28 | WOUNDNOTE ---
[facility] RN note: Patient admitted with anemia, hypomagnesemia, increased LE edema, weakness, falls.
See H&P for complete history.
PMH: hospital stay at [facility], asthma, chronic pain syndrome with intra abdominal pain pump, lupus, scoliosis, fibromyalgia, anxiety/depression, obesity, thalassemia.
Wound Location and type/assessment: Patient admitted with: R heel dried blood blister, stage 2 L buttocks pressure injury near coccyx, sacral bruise suspect from fall prior to admission.
Noted MASD R groin, R heel blanchable red, small red ecchymotic abrasion L medial heel and medial lower calf.
Appetite: poor. EGD/colonoscopy planned this admission.
Pressure redistribution devices in place: [employer] Air bed. She can turn in bed with minimal assistance. Air chair cushion.
Plan: Silicone border foam changed L buttocks. Silicone border foam applied to sacrum and L heel. Foam changed R heel. Heels off bed with pillow and air chair cushion.
Will confirm orders with Dr. Carmen and updated RN Josee.
Care plan to be updated and will follow as needed.
Note to case management requested for discharge: VN if goes home when discharged.
Recommend follow up at wound care center upon discharge.
[2023-10-10] MEDS: ProAmatine PO ×2 (13:44→17:27)
[2023-10-10 14:45] VITALS: BP 102/65
[2023-10-10] MEDS: NULYTELY SOLUTION 4 LITERS PO (17:00)
--- NOTE | 2023-10-10 17:43 | CM ---
Patient confused and not able to participate in therapy due to confusion and lack of energy. VM left for daughter requesting call back; pt has 30 steps to enter the home which will be a large obstacle. CM to discuss SNF options with daughter.
PCP: Dr Zamora and she uses
Pharmacy: [facility] on [address].
--- NOTE | 2023-10-10 18:27 | W.PN.HOSP.TC ---
Today's Communication/Plan
-
Medication regimen adjusted to avoid oversedation.
Monitor cognitive status.
Prep for endoscopic evaluation.
Assessment / Plan
Assessment / Plan
Impression:
Presentation with generalized weakness.
Chronic microcytic anemia.
Acute TME secondary to polypharmacy
Odynophagia
History of gastric bypass surgery
Significant weight loss
Hypomagnesemia.
Chronic/worsening bilateral lower extremity edema.
Asthma without exacerbation
History of lupus currently not on any anti-inflammatory/immunosuppressive treatment.
Chronic pain syndrome secondary to scoliosis/degenerative disc disease/fibromyalgia
Indwelling/intra-abdominal pain pump in place
Anxiety/depression
Obesity with BMI of 31.
Plan:
Weakness/fatigue likely multifactorial possibly with contribution of worsening anemia
Patient reports improved lethargy since admission after transfusion
Chronic microcytic anemia with no evidence of acute blood loss.
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
Heme positive with brown stool.
Normal BUN.
History of thalassemia trend.
History of iron deficiency although recent iron levels consistent with normal saturations possibly anemia of chronic disease/inflammation.
Status post transfusion of 1 unit of packed red blood cells in ED with appropriate response in hemoglobin from 8.9-9.5
GI input appreciated
Plan is for EGD/colonoscopy, may need extensive prep given narcotics induced constipation.
Continue IV PPI twice daily.
Hold aspirin and NSAIDs.
Reported weight loss with hypoalbuminemia
Lower extremity edema.
CT abdomen pelvis showing uncomplicated colitis of ascending colon although patient does not have any pain/diarrhea ongoing. Question of inflammatory changes versus malignancy..
Hypomagnesemia being repleted. Follow magnesium level/BMP.
Chronic lower extremity edema.
Severe protein calorie malnutrition while BMI of 31
Albumin level of 1.9
No prior history or current clinical picture of CHF
CHF BNP 210
Evaluation as above
Status post single dose of Lasix on admission
Will hold further diuresis pending ongoing workup
Acute toxic leukoencephalopathy -concern due to ongoing polypharmacy with duloxetine and/gabapentin/lorazepam/nortriptyline and morphine pump
This has persisted today patient continued to remain with decreased wakefulness. Waking up on physical stimuli and able to communicate coherently although falls asleep fairly quick
Holding all known normal morphine medication of gabapentin/Ativan/Zanaflex. Decreasing amitriptyline to 25 mg at bedtime
Morphine pump in place and right flank palpated on exam. Managed by Dr. Lenz at [facility]
Discussed with daughter patient has been unable to get around with walker. Reportedly had 2 falls last week with patient is not remembering the second fall. CT head without contrast urgent ordered to rule out any slow subdural bleed.
ABG ordered to rule out CO2 narcosis although patient declined. Will check VBG instead.
UA clear. Check COVID. No other signs suggestive of ongoing sepsis.
Low clinical concern for non seizure activity as patient more or less somnolent and responding to stimuli.
Hypotension
Blood pressure in afternoon 85/55. NS fluid bolus and midodrine ordered
No signs of sepsis. No signs of blood loss.
Zanaflex parameter adjusted
Asthma
-Continue inhalers
-Continue montelukast
History of lupus
-Not on treatment
-Outpatient follow-up with rheumatology
Chronic pain syndrome secondary to scoliosis/degenerative disc issues/fibromyalgia
-Patient has intra-abdominal pain pump
Anxiety/depression
-Continue lorazepam
Obesity
Full code
DVT prophylaxis�SCDs
Anticipated Discharge: 24 - 48 hours
Subjective/Interval History
-
Date of Service: October 10, 2023
Objective Data
-
Vital Signs:
Vital Signs
Temp Pulse Resp BP Pulse Ox
98.8 F 101 16 111/73 100
10/10/23 14:45 10/10/23 17:27 10/10/23 14:45 10/10/23 17:27 10/10/23 14:45
I&O
10/09/23 10/10/23 10/11/23
06:59 06:59 06:59
Intake Total 960 / 960 960 / 960 960 / 960
Balance 960 / 960 960 / 960 960 / 960
Physical Exam
-
General: Well Developed and No Apparent Distress
HEENT: Normocephalic, Atraumatic and Moist Mucous Membranes
Respiratory: Clear to Auscultation
Cardiac: Regular Rhythm and S1/S2; Negative Murmur, Rub or Gallop
GI: Soft, Nontender, Nondistended and Normal Bowel Sounds; Negative Organomegaly
Rectal: Deferred by Provider
Musculoskeletal: No Clubbing, No Cyanosis and No Edema
Skin: Negative Rash
Neuro: Nonfocal/Grossly Intact
[2023-10-10] MEDS: ANTIFUNGAL CLEAR 1 APPLIC TOPICAL (20:31)
[2023-10-10] MEDS: SINGULAIR 10 MG PO (21:55)
[2023-10-10] MEDS: PAMELOR 25 MG PO (21:55)
[2023-10-10] MEDS: ANTIVERT 25 MG PO (21:55)
[2023-10-11] VITALS (11 sets, daily range): BP systolic 15–122; BP diastolic 50–75
[2023-10-11 05:47] LABS: Hematocrit 28.4 % (37.0-47.0); Hemoglobin 9.1 g/dL (12.0-16.0); Mean Corpuscular Volume 74.9 fL (81.0-99.0); Mean Platelet Volume 10.5 fL (7.4-10.4); Platelet Count 145 10^3/uL (130-400); Red Blood Cell Count 3.79 10^6/uL (4.20-5.40); Red Cell Dist. Width 18.8 % (11.5-14.5); White Blood Cell Count 8.3 10^3/uL (4.8-10.8)
[2023-10-11 06:19] LABS: Blood Urea Nitrogen 13 mg/dl (7-17); Calcium 7.2 mg/dl (8.4-10.2); Carbon Dioxide 32 mmol/L (22-30); Chloride 104 mmol/L (98-107); Estimated Creatinine Clearance 103 ml/min; Glucose 89 mg/dl (70-99); Potassium 3.4 mmol/L (3.5-5.1); Sodium 138 mmol/L (135-145); eGFR > 60.00
[2023-10-11] MEDS: NEUTRA-PHOS POWDER PACKET PO ×2 (08:40→11:19)
[2023-10-11] MEDS: CYMBALTA DELAYED RELEASE PO (08:40)
[2023-10-11] MEDS: ASPIR LOW (ENTERIC COATED) PO (08:40)
[2023-10-11] MEDS: MIRALAX PO ×2 (08:40→19:59)
[2023-10-11] MEDS: FOLVITE PO (08:40)
[2023-10-11] MEDS: ROCALTROL PO (08:41)
[2023-10-11] MEDS: ProAmatine PO ×3 (08:41→17:37)
[2023-10-11] MEDS: NSS (PRESERVATIVE FREE) 10 ML IV ×2 (08:42→20:05)
[2023-10-11] MEDS: ZYRTEC PO (08:42)
[2023-10-11] MEDS: ZADITOR BOTH EYES (08:42)
[2023-10-11] MEDS: PROTONIX IV 40 MG IV ×2 (08:43→20:05)
[2023-10-11] MEDS: ANTIFUNGAL CLEAR TOPICAL ×2 (08:53→20:05)
[2023-10-11] MEDS: ZOFRAN 4 MG IV (14:05)
[2023-10-11 14:09] LABS: IgA 462 mg/dl (70-400)
--- NOTE | 2023-10-11 14:59 | CM ---
Spoke with daughter Rosa via phone.
PT recommending skilled rehab.
Options reviewed with daughter, she would like facilities from [place] to [place]. Genny want [facility].
Referrals placed.
Plan; skilled rehab when medically stable.
Patient will need [employer] authorization. ;
--- NOTE | 2023-10-11 15:18 | CM ---
Deepthi's daughter did not call back from my voicemail left yesterday. Deepthi is ready for discharge today and SNF was recommended, however she has refused. Home Care was also offered as an option, but again, Deepthi refused this.
She is alert and oriented today; confusion from yesterday has resolved. Deepthi plans to return home today; her and/or daughter will come to pick her up.
I asked Deepthi if she had another way to get into her home besides the 30+ steps. Kera stated she usually walks up a few steps, rests, and repeats this. Family can also provide assistance as needed.
No further needs identified at this time.
PCP: Dr Zamora
Pharmacy: [facility] on [address] [place].
--- NOTE | 2023-10-11 16:12 | W.DS.TRANS ---
DC Summary - [employer]
-
Discharge Instructions:
Discharge Diagnosis/Procedures Toxic metabolic encephalopathy secondary to
polypharmacy.
Chronic anemia
Chronic pain syndrome
Diet Regular
Instructions:
Stand-Alone Forms:
Changes to Home Medications: Yes
Discharge Medications:
DC Medications w/original date entered in [facility]
aspirin 81 mg tablet,delayed release 81 mg PO DAILY Blood Clot Prevention/Tx 10/06/23
cetirizine 10 mg tablet 10 mg PO DAILY Allergies 10/06/23
cyanocobalamin (vitamin B-12) 1,000 mcg/mL injection solution 1,000 mcg IM MONTHLY Supplement 10/06/23
duloxetine 20 mg capsule,delayed release 20 mg PO DAILY Mental Health/Anxiety 10/06/23
epinephrine 0.3 mg/0.3 mL injection syringe 0.3 mg IM ONCE PRN anaphylaxis 10/06/23
fluticasone furoate 100 mcg/actuation blister powder for inhalation (Arnuity Ellipta) 1 inh inhalation R DAILY Lung/Breathing Issues 10/06/23
fluticasone propionate 110 mcg/actuation HFA aerosol inhaler 1 puff inhalation R BID Lung/Breathing Issues 10/06/23
folic acid 1 mg tablet 1 mg PO DAILY Supplement 10/06/23
ipratropium 0.5 mg-albuterol 3 mg (2.5 mg base)/3 mL nebulization soln 3 ml inhalation R Q6 PRN wheezing 10/06/23
levalbuterol tartrate 45 mcg/actuation aerosol inhaler 2 puff inhalation R Q6 PRN wheezing 10/06/23
meclizine 25 mg tablet 25 mg PO HS DIZZINESS 10/06/23
montelukast 10 mg tablet 10 mg PO HS ASTHMA 10/06/23
naloxone 4 mg/actuation nasal spray 4 mg intranasal Q2M PRN opioid overdose 10/06/23
olopatadine 0.2 % eye drops 1 drp BOTH EYES DAILY Eye Condition 10/06/23
pantoprazole 40 mg tablet,delayed release 40 mg PO DAILY Gastrointestinal Issue 10/06/23
sodium di- and monophosphate-potassium phos monobasic 250 mg tablet (Phospha Neutral) 1 tab PO MEALS 10/06/23
tizanidine 2 mg tablet 2 mg PO HS 10/06/23
calcitriol 0.25 mcg capsule 0.25 mcg PO BID 10/07/23
nortriptyline 25 mg capsule 25 mg PO HS #30 caps 10/11/23
pantoprazole 40 mg tablet,delayed release (Protonix) 40 mg PO DAILY #30 tabs 10/11/23
Home Medication Changes
Due to oversedation, nortriptyline dose has been reduced. Gabapentin and lorazepam had been discontinued
Patient remains on narcotic pump.
Protonix initiated.
Pending Results: No
--- NOTE | 2023-10-11 17:18 | W.PN.HOSP.TC ---
Today's Communication/Plan
-
Discharge planning
Assessment / Plan
Assessment / Plan
Impression:
Presentation with generalized weakness.
Chronic microcytic anemia.
Acute TME secondary to polypharmacy
Odynophagia
History of gastric bypass surgery
Significant weight loss
Hypomagnesemia.
Chronic/worsening bilateral lower extremity edema.
Asthma without exacerbation
History of lupus currently not on any anti-inflammatory/immunosuppressive treatment.
Chronic pain syndrome secondary to scoliosis/degenerative disc disease/fibromyalgia
Indwelling/intra-abdominal pain pump in place
Anxiety/depression
Obesity with BMI of 31.
Plan:
Weakness/fatigue likely multifactorial possibly with contribution of worsening anemia
Patient reports improved lethargy since admission after transfusion
Chronic microcytic anemia with no evidence of acute blood loss.
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
Heme positive with brown stool.
Normal BUN.
History of thalassemia trend.
History of iron deficiency although recent iron levels consistent with normal saturations possibly anemia of chronic disease/inflammation.
Status post transfusion of 1 unit of packed red blood cells in ED with appropriate response in hemoglobin from 8.9-9.5
GI input appreciated
EGD/colonoscopy unremarkable for source
Continue PPI
Ok for ASA,
Reported weight loss with hypoalbuminemia
Lower extremity edema.
CT abdomen pelvis showing uncomplicated colitis of ascending colon although patient does not have any pain/diarrhea ongoing. Question of inflammatory changes versus malignancy..
Hypomagnesemia being repleted. Follow magnesium level/BMP.
Chronic lower extremity edema.
Severe protein calorie malnutrition while BMI of 31
Albumin level of 1.9
No prior history or current clinical picture of CHF
CHF BNP 210
Evaluation as above
Status post single dose of Lasix on admission
Will hold further diuresis pending ongoing workup
Acute TME -concern due to ongoing polypharmacy with duloxetine and/gabapentin/lorazepam/nortriptyline and morphine pump
This has persisted today patient continued to remain with decreased wakefulness. Waking up on physical stimuli and able to communicate coherently although falls asleep fairly quick
Holding all known normal morphine medication of gabapentin/Ativan/Zanaflex. Decreasing amitriptyline to 25 mg at bedtime
Morphine pump in place and right flank palpated on exam. Managed by Dr. Lenz at [facility]
Discussed with daughter patient has been unable to get around with walker. Reportedly had 2 falls last week with patient is not remembering the second fall. CT head without contrast urgent ordered to rule out any slow subdural bleed.
ABG ordered to rule out CO2 narcosis although patient declined. Will check VBG instead.
UA clear. Check COVID. No other signs suggestive of ongoing sepsis.
Low clinical concern for non seizure activity as patient more or less somnolent and responding to stimuli.
Hypotension
Blood pressure in afternoon 85/55. NS fluid bolus and midodrine ordered
No signs of sepsis. No signs of blood loss.
Zanaflex parameter adjusted
Asthma
-Continue inhalers
-Continue montelukast
History of lupus
-Not on treatment
-Outpatient follow-up with rheumatology
Chronic pain syndrome secondary to scoliosis/degenerative disc issues/fibromyalgia
-Patient has intra-abdominal pain pump
Anxiety/depression
-Continue lorazepam
Obesity
Full code
DVT prophylaxis�SCDs
Anticipated Discharge: Within 24 hours
Subjective/Interval History
-
Date of Service: October 11, 2023
Objective Data
-
Labs:
Laboratory Results
10/11/23
05:22
WBC 8.3
Hgb 9.1 L
Hct 28.4 L
Plt Count 145
Sodium 138
Potassium 3.4 L
Chloride 104
Carbon Dioxide 32 H
BUN 13
Creatinine 0.7
Glucose 89
Calcium 7.2 L
Vital Signs:
Vital Signs
Temp Pulse Resp BP Pulse Ox
98.1 F 106 18 117/71 98
10/11/23 16:40 10/11/23 16:40 10/11/23 16:40 10/11/23 16:40 10/11/23 16:40
I&O
10/10/23 10/11/23 10/12/23
06:59 06:59 06:59
Intake Total 960 / 960 4460 / 4460
Balance 960 / 960 4460 / 4460
Physical Exam
-
General: Well Developed and No Apparent Distress
HEENT: Normocephalic, Atraumatic and Moist Mucous Membranes
Respiratory: Clear to Auscultation
Cardiac: Regular Rhythm and S1/S2; Negative Murmur, Rub or Gallop
GI: Soft, Nontender, Nondistended and Normal Bowel Sounds; Negative Organomegaly
Rectal: Deferred by Provider
Musculoskeletal: No Clubbing, No Cyanosis and No Edema
Skin: Negative Rash
Neuro: Nonfocal/Grossly Intact
[2023-10-11] MEDS: NEUTRA-PHOS POWDER PACKET 250 MG PO (17:35)
[2023-10-11] MEDS: ZANAFLEX 2 MG PO (20:05)
[2023-10-11] MEDS: ROCALTROL 0.25 MCG PO (20:06)
[2023-10-11] MEDS: ZADITOR 1 DROP BOTH EYES (20:06)
[2023-10-11] MEDS: PAMELOR PO (21:47)
[2023-10-11] MEDS: SINGULAIR 10 MG PO (21:51)
[2023-10-11] MEDS: ANTIVERT 25 MG PO (21:52)
[2023-10-12 07:20] VITALS: BP 106/75
[2023-10-12] MEDS: MIRALAX PO (08:28)
[2023-10-12] MEDS: NEUTRA-PHOS POWDER PACKET 250 MG PO ×3 (08:31→17:51)
[2023-10-12] MEDS: CYMBALTA DELAYED RELEASE 20 MG PO (08:32)
[2023-10-12] MEDS: ROCALTROL 0.25 MCG PO (08:32)
[2023-10-12] MEDS: FOLVITE 1 MG PO (08:32)
[2023-10-12] MEDS: ASPIR LOW (ENTERIC COATED) 81 MG PO (08:32)
[2023-10-12] MEDS: NSS (PRESERVATIVE FREE) 10 ML IV ×2 (08:33→21:18)
[2023-10-12] MEDS: PROTONIX IV 40 MG IV ×2 (08:33→21:17)
[2023-10-12] MEDS: ZYRTEC PO (08:34)
[2023-10-12] MEDS: ProAmatine PO ×3 (08:34→17:17)
[2023-10-12] MEDS: ANTIFUNGAL CLEAR TOPICAL (08:35)
[2023-10-12] MEDS: ZADITOR 1 DROP BOTH EYES ×2 (08:38→21:18)
--- NOTE | 2023-10-12 09:46 | CM ---
Call received from Kera's daughter regarding discharge plan. She is interested in SNF transfer and has chosen [facility] in [place] where a bed is available. [employer] authorization will need to be obtained. CM to contact insurance to obtain
auth, however this typically takes 2 days to be processed.
--- NOTE | 2023-10-12 10:33 | CM ---
Addendum entered by Melida Landa 10/14/23 12:31:
Facility name entered incorrectly - family chose [facility].
Original Note:
[employer] authorization has been started and attempting to fast track the determination.
Patient's daughter and will provide transport to [place] via car.
CM to continue to follow.
--- NOTE | 2023-10-12 13:01 | W.PN.GI.CBS2 ---
Addendum entered and electronically signed by JOSÉ MIGUEL Harper 10/13/23 06:48:
message sent office to arrange capsule and GI follow up
Original Note:
Today's Communication / Plan
-
-Evidence of gastric bypass on upper endoscopy without any ulceration and colonoscopy without any evidence of inflammation in the right colon, and area of congested mucosa in the sigmoid colon that was biopsied but otherwise unremarkable. Given
iron deficiency anemia, will do outpatient capsule but likely cause of anemia is underlying thalassemia.
Continue to follow-up with hematology as outpatient.
Will follow-up on the biopsies from upper endoscopy and colonoscopy.
-Previous constipation, currently on MiraLAX. Can titrate the dose based on bowel pattern.
-reviewed CT and U/S - LFTs improved, mildly dilated CBD at 8mm - consider MRCP, intrathecal pain pump MRI conditional-> see 06/22/23 note for instructions.
Will need to check with MRI department regarding doing an MRCP. Patient did have cervical MRI in May 2023.
Otherwise no further workup from a GI standpoint.
Assessment / Plan
-
58-year-old female with past medical history of fibromyalgia, chronic pain syndrome,asthma, lupus, scoliosis, anxiety/depression, thalassemia, iron deficiency anemia with port for iron transfusions, recent intrathecal pain pump placed who presents
to the emergency room after being at [facility] for confusion weakness and hallucinations felt to be possibly secondary to polypharmacy (reviewed discharge summary from [facility]) who presents to the emergency room with weight loss,
lower extremity edema worsening, odynophagia, progressive anemia with OB positive stool. We are asked to evaluate for anemia, OB positive stools and odynophagia. Her baseline hemoglobin is in the 10 range. Currently at the present time her
hemoglobin is 9.5 up from 8.9 after 1 unit of packed red blood cells. WBC 7.0, MCV 71.7, MCH 23.1, platelets 192, sodium 136, potassium 3.7, chloride 104, CO2 28, BUN 20, creatinine 0.7, calcium 7.1, magnesium 1.3, iron 54, TIBC 78, percent
saturation 69, ferritin 612.0, B12 > 1000, folate > 20, albumin 1.8, total bilirubin 1.6 up from 0.9, direct bilirubin pending, AST 43, ALT 36, alk phos 96. Hepatitis panel negative. Patient denies any fevers, chills, nausea, vomiting, melena,
hematochezia, dysphagia, tattoos, piercings, IV drug use, history of hepatitis, jaundice, liver disease. Patient denies any family history of gastrointestinal malignancy or IBD.
CT 10/07/23: with IV and PO: -Anatomy consistent with gastric bypass, liver and gallbladder stones, common bile duct 8 mm with no filling defect on CT scan, no lymphadenopathy, questionable postoperative seroma in the left flaquito-abdomen adjacent to
the anastomotic sutures measuring 2 x 5 cm, moderate circumferential wall thickening throughout the ascending colon, moderate stool burden throughout the sigmoid.
Ultrasound, 10/07/2023 mild extrahepatic ductal dilatation with common bile duct measuring 8 mm, gallbladder wall 3 mm, no pericholecystic fluid
Impression:
Microcytic anemia, lower than baseline (baseline 10, currently 8.9-> status post 1 unit packed red blood cells)->9.3
OB positive stool
Odynophagia -> after oral potassium pills
Epigastric pain
GERD
Weight loss-> 60 lbs over past year
Progressive lower extremity edema right greater than left
Elevated LFTs-> improved ->Ultrasound, 10/07/2023 mild extrahepatic ductal dilatation with common bile duct measuring 8 mm, gallbladder wall 3 mm, no pericholecystic fluid
Chronic pain syndrome with intrathecal pain pump (MRI conditional-> see implant card documentation 06/22/2023)
10/09/23: patient is very lethargic and difficult to wake up - had to sternal rub her
apparently similar yesterday and they decreased her medications
Hasn't received any meds today
would say one word and fall back to sleep
increased leukocytosis today, afebrile
stools ordered, discussed with hospitalist - consider culturing her in the setting of change in mental status
NPO until her mentation improves
RN aware
need to get more history
reviewed CT and U/S - LFTs improved, mildly dilated CBD at 8mm - consider MRCP
holding on procedures until she is more awake
10/10/23:
-Patient awake today, sedating meds adjusted. WBC WNL.
Plan:
-Evidence of gastric bypass on upper endoscopy without any ulceration and colonoscopy without any evidence of inflammation in the right colon, and area of congested mucosa in the sigmoid colon that was biopsied but otherwise unremarkable. Given
iron deficiency anemia, will do outpatient capsule but likely cause of anemia is underlying thalassemia.
Continue to follow-up with hematology as outpatient.
Will follow-up on the biopsies from upper endoscopy and colonoscopy.
-Previous constipation, currently on MiraLAX. Can titrate the dose based on bowel pattern.
-reviewed CT and U/S - LFTs improved, mildly dilated CBD at 8mm - consider MRCP, intrathecal pain pump MRI conditional-> see 06/22/23 note for instructions.
Will need to check with MRI department regarding doing an MRCP. Patient did have cervical MRI in May 2023.
Otherwise no further workup from a GI standpoint.
Subjective
Subjective
Date of Service: October 12, 2023
Patient denies any abdominal pain, nausea or vomiting. No diarrhea. Tolerating diet
Objective
Data Reviewed
Laboratory Data:
Laboratory Results
10/11/23 05:22
10/11/23 05:22
Laboratory Results
Magnesium 1.5 mg/dl (1.6-2.3) L 10/08/23 04:58
Total Bilirubin 1.3 mg/dl (0.2-1.3) 10/08/23 04:58
AST 34 U/L (14-36) 10/08/23 04:58
ALT 34 U/L (0-35) 10/08/23 04:58
Alkaline Phosphatase 95 U/L (38-126) 10/08/23 04:58
Vital Signs and I&O:
Vital Signs
Temp Pulse Resp BP Pulse Ox
98.5 F 100 18 106/75 97
10/12/23 07:20 10/12/23 08:34 10/12/23 08:45 10/12/23 08:34 10/12/23 08:45
I&O
10/11/23 10/12/23 10/13/23
06:59 06:59 06:59
Intake Total 4460 / 4460 1200 / 1200
Balance 4460 / 4460 1200 / 1200
Physical Exam
Physical Exam
GI: Soft, Non Distended and Non Tender
[2023-10-12 14:41] LABS: tTG IgG Antibody 25.5 EU/ml (0-19)
[2023-10-12 15:25] VITALS: BP 106/71
--- NOTE | 2023-10-12 16:58 | W.PN.HOSP.TC ---
Today's Communication/Plan
-
Medically stable for discharge.
Pending placement to [facility] facility.
Assessment / Plan
Assessment / Plan
Impression:
Presentation with generalized weakness.
Chronic microcytic anemia.
Acute TME secondary to polypharmacy
Odynophagia
History of gastric bypass surgery
Significant weight loss
Hypomagnesemia.
Chronic/worsening bilateral lower extremity edema.
Asthma without exacerbation
History of lupus currently not on any anti-inflammatory/immunosuppressive treatment.
Chronic pain syndrome secondary to scoliosis/degenerative disc disease/fibromyalgia
Indwelling/intra-abdominal pain pump in place
Anxiety/depression
Obesity with BMI of 31.
Plan:
Weakness/fatigue likely multifactorial possibly with contribution of worsening anemia
Patient reports improved lethargy since admission after transfusion
Chronic microcytic anemia with no evidence of acute blood loss.
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
Heme positive with brown stool.
Normal BUN.
History of thalassemia trend.
History of iron deficiency although recent iron levels consistent with normal saturations possibly anemia of chronic disease/inflammation.
Status post transfusion of 1 unit of packed red blood cells in ED with appropriate response in hemoglobin from 8.9-9.5
GI input appreciated
EGD/colonoscopy unremarkable for source
Continue PPI
Ok for ASA,
Reported weight loss with hypoalbuminemia
Lower extremity edema.
CT abdomen pelvis showing uncomplicated colitis of ascending colon although patient does not have any pain/diarrhea ongoing. Question of inflammatory changes versus malignancy..
Hypomagnesemia being repleted. Follow magnesium level/BMP.
Chronic lower extremity edema.
Severe protein calorie malnutrition while BMI of 31
Albumin level of 1.9
No prior history or current clinical picture of CHF
CHF BNP 210
Evaluation as above
Status post single dose of Lasix on admission
Will hold further diuresis pending ongoing workup
Acute TME -concern due to ongoing polypharmacy with duloxetine and/gabapentin/lorazepam/nortriptyline and morphine pump
This has persisted today patient continued to remain with decreased wakefulness. Waking up on physical stimuli and able to communicate coherently although falls asleep fairly quick
Holding all known normal morphine medication of gabapentin/Ativan/Zanaflex. Decreasing amitriptyline to 25 mg at bedtime
Morphine pump in place and right flank palpated on exam. Managed by Dr. Lenz at [facility]
Discussed with daughter patient has been unable to get around with walker. Reportedly had 2 falls last week with patient is not remembering the second fall. CT head without contrast urgent ordered to rule out any slow subdural bleed.
ABG ordered to rule out CO2 narcosis although patient declined. Will check VBG instead.
UA clear. Check COVID. No other signs suggestive of ongoing sepsis.
Low clinical concern for non seizure activity as patient more or less somnolent and responding to stimuli.
Hypotension
Blood pressure in afternoon 85/55. NS fluid bolus and midodrine ordered
No signs of sepsis. No signs of blood loss.
Zanaflex parameter adjusted
Asthma
-Continue inhalers
-Continue montelukast
History of lupus
-Not on treatment
-Outpatient follow-up with rheumatology
Chronic pain syndrome secondary to scoliosis/degenerative disc issues/fibromyalgia
-Patient has intra-abdominal pain pump
Anxiety/depression
-Continue lorazepam
Obesity
Full code
DVT prophylaxis�SCDs
Anticipated Discharge: Within 24 hours
Subjective/Interval History
-
Date of Service: October 12, 2023
Objective Data
-
Vital Signs:
Vital Signs
Temp Pulse Resp BP Pulse Ox
98.9 F 96 16 106/71 97
10/12/23 15:25 10/12/23 15:25 10/12/23 15:25 10/12/23 15:25 10/12/23 15:25
I&O
10/11/23 10/12/23 10/13/23
06:59 06:59 06:59
Intake Total 4460 / 4460 1200 / 1200
Balance 4460 / 4460 1200 / 1200
Physical Exam
-
General: Well Developed and No Apparent Distress
HEENT: Normocephalic, Atraumatic and Moist Mucous Membranes
Respiratory: Clear to Auscultation
Cardiac: Regular Rhythm and S1/S2; Negative Murmur, Rub or Gallop
GI: Soft, Nontender, Nondistended and Normal Bowel Sounds; Negative Organomegaly
Rectal: Deferred by Provider
Musculoskeletal: No Clubbing, No Cyanosis and No Edema
Skin: Negative Rash
Neuro: Nonfocal/Grossly Intact
[2023-10-12 20:50] VITALS: BP 127/79
[2023-10-12] MEDS: MIRALAX 17 GRAMS PO (21:17)
[2023-10-12] MEDS: ROCALTROL PO ×2 (21:18→21:24)
[2023-10-12] MEDS: ANTIVERT 25 MG PO (21:18)
[2023-10-12] MEDS: SINGULAIR 10 MG PO (21:18)
[2023-10-12] MEDS: ANTIFUNGAL CLEAR 1 APPLIC TOPICAL (21:28)
[2023-10-12 23:00] VITALS: BP 125/71
[2023-10-12] MEDS: PAMELOR 25 MG PO (23:24)
[2023-10-13] MEDS: ZANAFLEX 2 MG PO (01:35)
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
[2023-10-13 07:45] VITALS: BP 100/69
[2023-10-13] MEDS: ASPIR LOW (ENTERIC COATED) 81 MG PO (09:42)
[2023-10-13] MEDS: ANTIFUNGAL CLEAR 1 APPLIC TOPICAL ×2 (09:42→20:46)
[2023-10-13] MEDS: FOLVITE 1 MG PO (09:42)
[2023-10-13] MEDS: ROCALTROL 0.25 MCG PO (09:42)
[2023-10-13] MEDS: CYMBALTA DELAYED RELEASE 20 MG PO (09:42)
[2023-10-13] MEDS: MIRALAX PO ×2 (09:42→20:39)
[2023-10-13] MEDS: PROTONIX IV 40 MG IV (09:43)
[2023-10-13] MEDS: NEUTRA-PHOS POWDER PACKET 250 MG PO ×3 (09:43→18:01)
[2023-10-13] MEDS: ProAmatine 10 MG PO (09:43)
[2023-10-13] MEDS: NSS (PRESERVATIVE FREE) 10 ML IV (09:43)
[2023-10-13] MEDS: FLUSH (NSS) 1 FLUSH IV (09:44)
[2023-10-13] MEDS: ZYRTEC 10 MG PO (09:44)
[2023-10-13] MEDS: ZADITOR 1 DROP BOTH EYES ×2 (09:44→20:45)
--- NOTE | 2023-10-13 10:02 | CM ---
Addendum entered by Melida Landa 10/13/23 11:46:
Kera and her RN made aware of pending authorization for SNF transfer.
Original Note:
[facility] the status [facility] precert[facility] (Reference #[id number]). Precert is still pending and could take up to 3 days per Bety. Auth Reference #: [id number]
VM left for Kera's daughter, Rosa to update her regarding status of transfer, pending final auth.
Plan: Transfer to [facility]; awaiting authorization.
[2023-10-13] MEDS: ProAmatine PO ×2 (12:43→18:01)
[2023-10-13 15:19] VITALS: BP 112/71
--- NOTE | 2023-10-13 15:27 | W.PN.GI.CBS2 ---
Addendum entered and electronically signed by JOSÉ MIGUEL Harper 10/14/23 10:33:
reviewed with staff ok to transition to PO PPI daily as issue with IV access. Ok for regular diet.
Addendum entered and electronically signed by Julieta Goss MD 10/13/23 18:30:
I saw and examined the patient.
The APPLICATIONS SYSTEM ANALYST or PA's note was reviewed and I agree with the note.
Comment: Patient reports burning in the abdomen radiating to the legs, no relation to food or bowel movements.
Tolerating low residue diet. Brown formed stool without any active bleeding.
Reviewed with MRI department, patient has intrathecal pump and that has to be emptied prior to the MRI, not done as inpatient. This can be done as an outpatient through pain management.
LFTs normal. Could plan for MRCP as outpatient
Cannot do EUS with history of gastric bypass
-Anemia likely related to underlying thalassemia, upper endoscopy and colonoscopy without any etiology for anemia and biopsies negative
For small bowel capsule as outpatient.
Continue PPI
Will sign off, please call back if needed
Addendum entered and electronically signed by JOSÉ MIGUEL Harper 10/13/23 16:51:
reviewed with Dr. Goss EUS limited with hx gastric bypass
Original Note:
Today's Communication / Plan
-
Pt was for MRI today but declines to proceed as states she can not do with intrathecal pump. Would need to be empty then filled day of MRI which cannot be done inpatient
if LFT remain elevated consider OP MRI vs EUS if patient agreeable
EGD/colon bx neg
plan for capsule endoscopy and OP follow up with after completed
cont PPI with report of burning pain
cont miralax
Assessment / Plan
-
58-year-old female with past medical history of fibromyalgia, chronic pain syndrome,asthma, lupus, scoliosis, anxiety/depression, thalassemia, iron deficiency anemia with port for iron transfusions, recent intrathecal pain pump placed who presents
to the emergency room after being at [facility] for confusion weakness and hallucinations felt to be possibly secondary to polypharmacy (reviewed discharge summary from [facility]) who presents to the emergency room with weight loss,
lower extremity edema worsening, odynophagia, progressive anemia with OB positive stool. We are asked to evaluate for anemia, OB positive stools and odynophagia. Her baseline hemoglobin is in the 10 range. Pt also noted with some elevated LFT's.
US as noted with mild extrahepatic ductal dilatation. CBD 8 mm.
Currently at the present time her hemoglobin is 9.5 up from 8.9 after 1 unit of packed red blood cells. WBC 7.0, MCV 71.7, MCH 23.1, platelets 192, sodium 136, potassium 3.7, chloride 104, CO2 28, BUN 20, creatinine 0.7, calcium 7.1, magnesium
1.3, iron 54, TIBC 78, percent saturation 69, ferritin 612.0, B12 > 1000, folate > 20, albumin 1.8, total bilirubin 1.6 up from 0.9, direct bilirubin pending, AST 43, ALT 36, alk phos 96. Hepatitis panel negative. Patient denies any fevers,
chills, nausea, vomiting, melena, hematochezia, dysphagia, tattoos, piercings, IV drug use, history of hepatitis, jaundice, liver disease. Patient denies any family history of gastrointestinal malignancy or IBD.
CT 10/07/23: with IV and PO: -Anatomy consistent with gastric bypass, liver and gallbladder stones, common bile duct 8 mm with no filling defect on CT scan, no lymphadenopathy, questionable postoperative seroma in the left flaquito-abdomen adjacent to
the anastomotic sutures measuring 2 x 5 cm, moderate circumferential wall thickening throughout the ascending colon, moderate stool burden throughout the sigmoid.
Ultrasound, 10/07/2023 mild extrahepatic ductal dilatation with common bile duct measuring 8 mm, gallbladder wall 3 mm, no pericholecystic fluid
10/10- EGD - Nodule found in the esophagus. Biopsied.
- No gross lesions in the entire esophagus. Biopsied.
- Z-line regular, 37 cm from the incisors.
- Gastric bypass with a pouch 4 cm in length and
intact staple line. Gastrojejunal anastomosis
characterized by healthy appearing mucosa. Biopsied.
bx no H pylori, no histologic change for nodule ? SM lesion
10/10- colonoscopy - The examined portion of the ileum was normal.
- The entire examined colon is normal.
- Granularity in the sigmoid colon. Biopsied.
bx colonic mucosa focal aggregate
Impression:
Microcytic anemia, lower than baseline (baseline 10)
OB positive stool
Odynophagia -> after oral potassium pills
Epigastric pain
GERD
Weight loss-> 60 lbs over past year
Progressive lower extremity edema right greater than left
Elevated LFTs-> improved ->Ultrasound, 10/07/2023 mild extrahepatic ductal dilatation with common bile duct measuring 8 mm, gallbladder wall 3 mm, no pericholecystic fluid
Chronic pain syndrome with intrathecal pain pump (MRI conditional-> see implant card documentation 06/22/2023)
PLAN:
Pt was for MRI today but declines to proceed as states she can not do with intrathecal pump. Would need to be empty then filled day of MRI which cannot be done inpatient
if LFT remain elevated consider OP MRI vs EUS if patient agreeable
EGD/colon bx neg
plan for capsule endoscopy and OP follow up with after completed
cont PPI with report of burning pain
cont miralax
Subjective
Subjective
Date of Service: October 13, 2023
10/12 brown small stool, on low residue diet, pt reports she cannot do MRI with current pain pump, also with some buring pain on right side
Objective
Data Reviewed
Laboratory Data:
Laboratory Results
10/11/23 05:22
10/11/23 05:22
Laboratory Results
Magnesium 1.5 mg/dl (1.6-2.3) L 10/08/23 04:58
Total Bilirubin 1.3 mg/dl (0.2-1.3) 10/08/23 04:58
AST 34 U/L (14-36) 10/08/23 04:58
ALT 34 U/L (0-35) 10/08/23 04:58
Alkaline Phosphatase 95 U/L (38-126) 10/08/23 04:58
Vital Signs and I&O:
Vital Signs
Temp Pulse Resp BP Pulse Ox
98.6 F 85 14 112/71 99
10/13/23 15:19 10/13/23 15:19 10/13/23 15:19 10/13/23 15:19 10/13/23 15:19
I&O
10/12/23 10/13/23 10/14/23
06:59 06:59 06:59
Intake Total 1200 / 1200 480 / 480 720 / 720
Balance 1200 / 1200 480 / 480 720 / 720
Physical Exam
Physical Exam
HEENT: Anicteric and Moist mucous membranes
Cardiology: Normal Sinus Rhythm
Pulmonary: Clear
GI: Soft, Non Distended and Tender (right sided burning pain)
Extremities: Edema
Neuro: Non Focal
--- NOTE | 2023-10-13 15:42 | PTCARENOTE ---
Pt AAO x3, MENDEZ; OOB to BR with assist x1, dayday OOB activity but tires easily. VSS. pt has (+) edema BLE. On room air- pulseox 99%, no c/o SOB. Abd obese, soft, dayday PO low residue diet; appetite poor. Voids in BR; has stress incont at times.
Resting in bed at present, no c/o. Will continue to monitor.
--- NOTE | 2023-10-13 18:40 | W.PN.HOSP.TC ---
Today's Communication/Plan
-
Adequate optimized for placement to [facility] facility pending insurance authorization.
Assessment / Plan
Assessment / Plan
Impression:
Presentation with generalized weakness.
Chronic microcytic anemia.
Acute TME secondary to polypharmacy
Odynophagia
History of gastric bypass surgery
Significant weight loss
Hypomagnesemia.
Chronic/worsening bilateral lower extremity edema.
Asthma without exacerbation
History of lupus currently not on any anti-inflammatory/immunosuppressive treatment.
Chronic pain syndrome secondary to scoliosis/degenerative disc disease/fibromyalgia
Indwelling/intra-abdominal pain pump in place
Anxiety/depression
Obesity with BMI of 31.
Plan:
Weakness/fatigue likely multifactorial possibly with contribution of worsening anemia
Patient reports improved lethargy since admission after transfusion
Chronic microcytic anemia with no evidence of acute blood loss.
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
Heme positive with brown stool.
Normal BUN.
History of thalassemia trend.
History of iron deficiency although recent iron levels consistent with normal saturations possibly anemia of chronic disease/inflammation.
Status post transfusion of 1 unit of packed red blood cells in ED with appropriate response in hemoglobin from 8.9-9.5
GI input appreciated
EGD/colonoscopy unremarkable for source
Continue PPI
Ok for ASA,
Reported weight loss with hypoalbuminemia
Lower extremity edema.
CT abdomen pelvis showing uncomplicated colitis of ascending colon although patient does not have any pain/diarrhea ongoing. Question of inflammatory changes versus malignancy..
Hypomagnesemia being repleted. Follow magnesium level/BMP.
Chronic lower extremity edema.
Severe protein calorie malnutrition while BMI of 31
Albumin level of 1.9
No prior history or current clinical picture of CHF
CHF BNP 210
Evaluation as above
Status post single dose of Lasix on admission
Will hold further diuresis pending ongoing workup
Acute TME -concern due to ongoing polypharmacy with duloxetine and/gabapentin/lorazepam/nortriptyline and morphine pump
This has persisted today patient continued to remain with decreased wakefulness. Waking up on physical stimuli and able to communicate coherently although falls asleep fairly quick
Holding all known normal morphine medication of gabapentin/Ativan/Zanaflex. Decreasing amitriptyline to 25 mg at bedtime
Morphine pump in place and right flank palpated on exam. Managed by Dr. Lenz at [facility]
Discussed with daughter patient has been unable to get around with walker. Reportedly had 2 falls last week with patient is not remembering the second fall. CT head without contrast urgent ordered to rule out any slow subdural bleed.
ABG ordered to rule out CO2 narcosis although patient declined. Will check VBG instead.
UA clear. Check COVID. No other signs suggestive of ongoing sepsis.
Low clinical concern for non seizure activity as patient more or less somnolent and responding to stimuli.
Hypotension
Blood pressure in afternoon 85/55. NS fluid bolus and midodrine ordered
No signs of sepsis. No signs of blood loss.
Zanaflex parameter adjusted
Asthma
-Continue inhalers
-Continue montelukast
History of lupus
-Not on treatment
-Outpatient follow-up with rheumatology
Chronic pain syndrome secondary to scoliosis/degenerative disc issues/fibromyalgia
-Patient has intra-abdominal pain pump
Anxiety/depression
-Continue lorazepam
Obesity
Full code
DVT prophylaxis�SCDs
Anticipated Discharge: Within 24 hours
Subjective/Interval History
-
Date of Service: October 13, 2023
Objective Data
-
Vital Signs:
Vital Signs
Temp Pulse Resp BP Pulse Ox
98.6 F 86 14 128/72 99
10/13/23 15:19 10/13/23 18:01 10/13/23 15:19 10/13/23 18:01 10/13/23 15:42
I&O
10/12/23 10/13/23 10/14/23
06:59 06:59 06:59
Intake Total 1200 / 1200 480 / 480 1679 / 0
Balance 1200 / 1200 480 / 480 0 / 0
Physical Exam
-
General: Well Developed and No Apparent Distress
HEENT: Normocephalic, Atraumatic and Moist Mucous Membranes
Respiratory: Clear to Auscultation
Cardiac: Regular Rhythm and S1/S2; Negative Murmur, Rub or Gallop
GI: Soft, Nontender, Nondistended and Normal Bowel Sounds; Negative Organomegaly
Rectal: Deferred by Provider
Musculoskeletal: No Clubbing, No Cyanosis and No Edema
Skin: Negative Rash
Neuro: Nonfocal/Grossly Intact
[2023-10-13] MEDS: PROTONIX IV IV (20:45)
[2023-10-13] MEDS: NSS (PRESERVATIVE FREE) IV (20:46)
[2023-10-13] MEDS: ROCALTROL PO (20:47)
[2023-10-13] MEDS: PAMELOR 25 MG PO (21:01)
[2023-10-13] MEDS: ANTIVERT 25 MG PO (21:02)
[2023-10-13] MEDS: SINGULAIR 10 MG PO (21:02)
[2023-10-13 23:40] VITALS: BP 104/73
[2023-10-14 00:20] LABS: Endomysial IgA Antibody Titer <1:10 (<1:10)
[2023-10-14] MEDS: ZANAFLEX 2 MG PO (02:24)
[2023-10-14 05:27] VITALS: BP 122/77
[2023-10-14 08:36] VITALS: BP 113/68
[2023-10-14] MEDS: ProAmatine PO ×2 (10:06→12:42)
[2023-10-14] MEDS: MIRALAX PO (10:06)
[2023-10-14] MEDS: FOLVITE 1 MG PO (10:07)
[2023-10-14] MEDS: NEUTRA-PHOS POWDER PACKET 250 MG PO ×2 (10:07→12:41)
[2023-10-14] MEDS: ASPIR LOW (ENTERIC COATED) 81 MG PO (10:07)
[2023-10-14] MEDS: ZYRTEC 10 MG PO (10:07)
[2023-10-14] MEDS: ROCALTROL PO ×2 (10:07→10:22)
[2023-10-14] MEDS: ZADITOR 1 DROP BOTH EYES (10:07)
[2023-10-14] MEDS: CYMBALTA DELAYED RELEASE 20 MG PO (10:07)
[2023-10-14] MEDS: ANTIFUNGAL CLEAR 1 APPLIC TOPICAL (10:09)
[2023-10-14] MEDS: NSS (PRESERVATIVE FREE) IV (10:37)
[2023-10-14] MEDS: PROTONIX IV IV (10:38)
[2023-10-14 12:28] VITALS: BP 119/80
--- NOTE | 2023-10-14 12:35 | CM ---
SNF authorization obtained; Admission approved with [facility] 10/25/2023; auth [id number]. Daughter advised of same. She requested I text her the phone number to call for payment of w/c van transport.
Call to [facility] with [facility]; await response regarding cost and waste picker time.
Please call report to [phone]
[2023-10-14] MEDS: PROTONIX 40 MG PO (12:41)
--- NOTE | 2023-10-14 12:42 | W.DS.TRANS ---
DC Summary - [facility]
-
Discharge Instructions:
Discharge Diagnosis/Procedures Toxic metabolic encephalopathy secondary to
polypharmacy.
Chronic anemia
Chronic pain syndrome
Diet Regular
Blood Work CBC 1-2 weeks
Instructions:
Stand-Alone Forms:
Changes to Home Medications: Yes
Discharge Medications:
DC Medications w/original date entered in [employer]
aspirin 81 mg tablet,delayed release 81 mg PO DAILY Blood Clot Prevention/Tx 10/06/23
cetirizine 10 mg tablet 10 mg PO DAILY Allergies 10/06/23
cyanocobalamin (vitamin B-12) 1,000 mcg/mL injection solution 1,000 mcg IM MONTHLY Supplement 10/06/23
duloxetine 20 mg capsule,delayed release 20 mg PO DAILY Mental Health/Anxiety 10/06/23
epinephrine 0.3 mg/0.3 mL injection syringe 0.3 mg IM ONCE PRN anaphylaxis 10/06/23
fluticasone furoate 100 mcg/actuation blister powder for inhalation (Arnuity Ellipta) 1 inh inhalation R DAILY Lung/Breathing Issues 10/06/23
fluticasone propionate 110 mcg/actuation HFA aerosol inhaler 1 puff inhalation R BID Lung/Breathing Issues 10/06/23
folic acid 1 mg tablet 1 mg PO DAILY Supplement 10/06/23
ipratropium 0.5 mg-albuterol 3 mg (2.5 mg base)/3 mL nebulization soln 3 ml inhalation R Q6 PRN wheezing 10/06/23
levalbuterol tartrate 45 mcg/actuation aerosol inhaler 2 puff inhalation R Q6 PRN wheezing 10/06/23
meclizine 25 mg tablet 25 mg PO HS DIZZINESS 10/06/23
montelukast 10 mg tablet 10 mg PO HS ASTHMA 10/06/23
naloxone 4 mg/actuation nasal spray 4 mg intranasal Q2M PRN opioid overdose 10/06/23
olopatadine 0.2 % eye drops 1 drp BOTH EYES DAILY Eye Condition 10/06/23
pantoprazole 40 mg tablet,delayed release 40 mg PO DAILY Gastrointestinal Issue 10/06/23
sodium di- and monophosphate-potassium phos monobasic 250 mg tablet (Phospha Neutral) 1 tab PO MEALS 10/06/23
tizanidine 2 mg tablet 2 mg PO HS 10/06/23
calcitriol 0.25 mcg capsule 0.25 mcg PO BID 10/07/23
nortriptyline 25 mg capsule 25 mg PO HS #30 caps 10/11/23
pantoprazole 40 mg tablet,delayed release (Protonix) 40 mg PO DAILY #30 tabs 10/11/23
Home Medication Changes
Gabapentin, Lorazepam stopped due to oversedation
Tizanidine dose reduced.
Pending Results: No
--- NOTE | 2023-10-14 13:13 | CM ---
W/C van arranged for transfer to [facility] at family request. Per Ant[facility] of [facility], Cost of transport is $340 and Rosa pt's daughter is aware to call [phone] for payment.
Report to be called to [phone]
[2023-10-14 15:29] VITALS: BP 117/76
== END 2023-10-14 15:38 | DRG 91 ==
LOC: 4 EAST ACU 11:19
PROVIDERS: Hospitalist; Internal Medicine Gastroenterology; Nurse Practitioner; ADMITTING PHYSICIAN Hospitalist; ATTENDING PHYSICIAN Internal Medicine; CONSULT PHYSICIAN Internal Medicine; EMERGENCY PHYSICIAN Emergency Medicine; FAMILY PHYSICIAN Family Medicine
PROC: 0DBE8ZX Excision of Large Intestine, Via Natural or Artificial Opening Endoscopic, Diagnostic (ICD-10-PCS; 2023-10-11)
PROC: 0DB58ZX Excision of Esophagus, Via Natural or Artificial Opening Endoscopic, Diagnostic (ICD-10-PCS; 2023-10-11)
PROC: 0DB68ZX Excision of Stomach, Via Natural or Artificial Opening Endoscopic, Diagnostic (ICD-10-PCS; 2023-10-11)
PROC: 30233N1 Transfusion of Nonautologous Red Blood Cells into Peripheral Vein, Percutaneous Approach (ICD-10-PCS; 2023-10-11)
DX: G92.8 Other toxic encephalopathy (principal); E43 Unspecified severe protein-calorie malnutrition; K91.2 Postsurgical malabsorption, not elsewhere classified; G89.4 Chronic pain syndrome; D56.3 Thalassemia minor; E66.09 Other obesity due to excess calories; T50.915A Adverse effect of multiple unspecified drugs, medicaments and biological substances, initial encounter; D50.9 Iron deficiency anemia, unspecified; R60.0 Localized edema; M79.7 Fibromyalgia; K22.89 Other specified disease of esophagus; M41.9 Scoliosis, unspecified; E83.42 Hypomagnesemia; F32.A Depression, unspecified; F41.9 Anxiety disorder, unspecified; J45.998 Other asthma; K63.89 Other specified diseases of intestine; Z68.31 Body mass index [BMI] 31.0-31.9, adult; Z98.84 Bariatric surgery status; Z79.82 Long term (current) use of aspirin
CPT/HCPCS: 88305; 70450; 74177; 76700; 80048; 80053; 80076; 81003; 81015; 82248; 82550; 82607; 82728; 82746; 82784; 83516; 83540; 83550; 83735; 83880; 84443; 84484; 85025; 85027; 86231; 86705; 86706; 86709; 86803; 86850; 86900; 86901; 86920; 87340; 87811; 88342; 94640; 96365; 96375; 97116; 97163; 97166; 97530; 97535; 99285; P9016; Q9967